=== PATIENT | female | born 1960 | race Caucasian/White ===

== ENCOUNTER 2018-06-29 00:39 | Outpatient (CLI) | payer BC, SELFPAY ==
--- NOTE | 2018-06-29 08:31 | DI.CT_ITS ---
SYMPTOM/DIAGNOSIS: EPIGASTRIC OR RECTUS HERNIA ABDOMEN CT: Images were performed from the lung bases through the aortic bifurcation after IV and oral contrast. There is no evidence of an abdominal wall hernia. The lung bases are clear. The heart size is normal. There is hardware at the L4-5 level causing artifact. There is a small liver cyst. The spleen, gallbladder, adrenals, pancreas and kidneys are unremarkable. No bowel dilatation or inflammatory changes are seen. IMPRESSION: No evidence of abdominal wall hernia or other acute abnormality.
[2018-06-29] MEDS: Omnipaque 350 MG/ML 50 ML BTL IJ (09:06)
[2018-06-29] MEDS: Breeza Beverage 473 ML BTL PO (09:06)
[2018-06-29 09:09] LABS: CREATININE 0.82 mg/dL (0.55-1.02)
[2018-06-29] MEDS: Omnipaque 350 MG/ML 100 ML BTL IJ (10:38)
== END 2018-06-29 00:59 ==
PROVIDERS: Family Medicine; PCP Emergency Medicine; Visit Provider Emergency Medicine
DX: R10.13 Epigastric pain (principal); K76.89 Other specified diseases of liver; N28.9 Disorder of kidney and ureter, unspecified
CPT/HCPCS: 36415; 74160; 82565; J3490; Q9967

== ENCOUNTER 2018-08-30 15:18 | Outpatient (CLI) | payer BC, SELFPAY ==
--- NOTE | 2018-08-30 15:16 | DI.RAD_ITS ---
SYMPTOM/DIAGNOSIS: B/L KNEE OA LEG LENGTH EXAMINATION: In the right knee there is moderate narrowing of the medial femoral tibial joint space and periarticular spurring seen both medially and laterally. In the left knee there is mild narrowing of the medial joint compartment with periarticular spurring seen both medially and laterally The hips are well maintained as are the ankles. The right lower extremity measures 90.3 cm. The left lower extremity measures 91.2 cm. IMPRESSION: Bilateral osteoarthritis of the knees.
== END 2018-08-30 15:38 ==
PROVIDERS: PCP Emergency Medicine; Visit Provider Physician Assistant
DX: M17.0 Bilateral primary osteoarthritis of knee (principal)
CPT/HCPCS: 77073

== ENCOUNTER 2018-11-10 12:57 | Outpatient (CLI) | payer BC, SELFPAY ==
[2018-11-10 14:12] LABS: HCT 39.8 % (36.0-46.0); HGB 13.6 g/dL (12.0-15.5); Mean Corp. HGB Concentration 34.2 g/dL (32.0-36.0); Mean Corpuscular Hemoglobin 32.3 pg (27.0-33.0); Mean Corpuscular Volume 94.5 fL (80-95); Mean Platelet Volume 9.8 fL (8.0-11.0); Platelet Count 215 x1000/uL (130-400); RBC 4.21 m/cumm (4.00-5.20); RBC Distribution Width 13.6 % (11.7-14.6); White Blood Cell Count 3.91 k/cumm (4.4-10.8)
[2018-11-10 16:07] LABS: Anion Gap 9.8 mmol/L (3-11); BUN 28 mg/dL (7-18); CO2 27.2 mmol/L (21.0-32.0); CREATININE 0.81 mg/dL (0.55-1.02); Calcium 8.7 mg/dL (8.5-10.1); Chloride 105 mmol/L (98-107); Glucose 84 mg/dL (70-100); Potassium 3.6 mmol/L (3.5-5.1); Sodium 142 mmol/L (136-145)
--- NOTE | 2018-11-11 13:28 | W.PREOPHP ---
Date of service: 11/10/18 Assessment and Plan (1) Bilateral primary osteoarthritis of knee: Current visit: No Status: Chronic Right total knee replacement. Details of surgery were discussed with patient as well as risks and pertinent anatomy. All questions were answered. History of Present Illness Chief Complaint: Bilateral knee pain, right worse than left. Narrative: Dorothy a 57-year-old female comes in today for a preop visit for a right total knee replacement. She has been complaining of bilateral knee pain for many years now, but the pain has gotten significantly worse over the last few months. She has been using injections to keep the pain at bay, but this is not appear to be working very well anymore. She is a very active person who enjoys doing many activities, but is unable to do a lot of the because of her knee pain. She is unable to get into a deep squat position, finds it difficult to go up and down stairs, down being more difficult. She is also having difficulty walking up and down hills. X-rays taken of the knee show that she does have significant arthritis of both of her knees, with the right being worse than the left. She has decrease in joint space especially on the medial side, with bone spurs throughout. Since she has failed conservative treatment to this point, she would like to move forward with a right total knee replacement. She is also hoping in the near future to have her left knee replaced as well. Pertinent Surgical Information Patient denies history of hypertension, CVA, WI, angina, asthma, COPD, renal or liver disorders, hepatitis, bleeding disorders, diabetes, immune or thyroid disorders. No complications from anesthesia. Review of Systems Constitutional Denies fever(s) ENT Denies dizziness and Denies sore throat Cardiovascular Denies chest pain, Denies palpitations and Denies dyspnea Respiratory Denies dyspnea Gastrointestinal Denies abdominal pain, Denies melena, Denies hematochezia, Denies diarrhea, Denies nausea and Denies vomiting Genitourinary Denies hematuria and Denies dysuria Neurologic Denies dizziness Endocrine Denies palpitations PFSH Medical History Raynaud's disease (Chronic) Inflammatory bowel disease (Chronic) Anxiety DJD (degenerative joint disease), lumbar Lumbar spinal stenosis Migraine headache Right calf atrophy Sleep disorder Surgical History Achilles tendon tear Colonoscopy - IV Sedation Rotator Cuff Repair Family History Mother No problems noted. Other Alzheimer's dementia Atrial fibrillation COPD (chronic obstructive pulmonary disease) Colon polyps Hypertension Social History Smoking/Tobacco Use Status: Never alcohol intake: current alcohol intake frequency: a few times a week substance use type: does not use Meds Home Medications Medication Instructions Recorded Confirmed Type One Daily Women's [facility] 1 ea PO QAM 07/19/13 11/10/18 History Premarin 0.625 mg PO DAILY tab-cap 07/19/13 11/10/18 History buspirone mg PO DAILY tab-cap 07/19/13 08/30/18 History lmptckpksw-scvpblcanirat-hdam 2 tab-cap PO DAILY PRN tab-cap 07/19/13 11/10/18 History [Fioricet] citalopram 20 mg PO DAILY tab-cap 07/19/13 08/30/18 History omega-3 fatty acids-fish oil [Fish 1 ea PO TID 07/19/13 11/10/18 History Oil] progesterone micronized 200 mg PO DIRECTED 07/19/13 08/30/18 History [Prometrium] topiramate 50 mg PO HS 07/19/13 11/10/18 History zolpidem 10 mg PO HS 07/19/13 11/10/18 History bupropion HCl [Wellbutrin] 100 mg PO DAILY tab-cap 07/20/13 11/10/18 History cholestyramine (with sugar) 4 g PO BID packet 03/26/18 08/30/18 History Catalyst 3 ea PO DAILY 04/22/18 11/10/18 History Cbd 45 mg PO DAILY 04/22/18 11/10/18 History L.acidoph, paracasei,B. lactis 2 ea PO DAILY 04/22/18 11/10/18 History Osteo Bi-Flex Triple Strength 1 ea PO DAILY 04/22/18 11/10/18 History losartan 25 mg PO DAILY 04/22/18 11/10/[address] - ER 3 mg 9 mg PO DAILY cap 06/22/18 08/30/18 History capsule,delayed,extended release omeprazole 20 mg capsule,delayed 20 mg PO DAILY 07/13/18 11/10/18 History release celecoxib 200 mg PO DAILY 11/10/18 11/10/18 History Allergies Allergy/AdvReac Type Severity Reaction Status Date / Time fluconazole [From Diflucan] AdvReac Intermediate Upper body Verified 11/10/18 14:04 rash/itch Exam [facility] Head: normocephalic and atraumatic General nose exam: no nasal discharge Throat: uvula midline and no uvular edema Other: soft palate rises symmetrically, no erythema Eyes Conjunctivae: conjunctivae normal Sclera: sclerae normal Pupils: PERRL Resp Effort & Inspection: normal respiratory effort Auscultation: clear to auscultation bilaterally and no wheezes Cardio Rate: regular rate Rhythm: regular rhythm Heart Sounds: S1 normal, S2 normal and no murmurs Results Labs : 11/10/18 13:50 11/10/18 13:50 Laboratory Results - last 24 hr 11/10/18 11/10/18 13:50 13:50 WBC 3.91 L RBC 4.21 Hgb 13.6 Hct 39.8 MCV 94.5 MCH 32.3 MCHC 34.2 RDW 13.6 Plt Count 215 MPV 9.8 Sodium 142 Potassium 3.6 Chloride 105 Carbon Dioxide 27.2 Anion Gap 9.8 BUN 28 H Creatinine 0.81 Estimated GFR/1.73 m2 >= 60.00 Glucose 84 Calcium 8.7
== END 2018-11-10 13:17 ==
PROVIDERS: PCP Emergency Medicine; Visit Provider Student in an Organized Health Care Education/Training Program
DX: M25.561 Pain in right knee (principal); M17.11 Unilateral primary osteoarthritis, right knee; Z01.818 Encounter for other preprocedural examination
CPT/HCPCS: 36415; 80048; 85027; NC

== ENCOUNTER 2018-11-16 06:01 | Observation (INO) | payer BC, SELFPAY ==
[2018-11-16] VITALS (12 sets, daily range): BP systolic 97–121; BP diastolic 61–82; PULSE 53–70; RESP 11–25; TEMP 36.5–37.3; O2SAT 96–99
[2018-11-16] MEDS: Lactated Ringers 1,000 ML 80 ML IV ×3 (06:35→14:31)
[2018-11-16] MEDS: Gabapentin 300 MG CAP PO (06:39)
[2018-11-16] MEDS: Acetaminophen 500 MG TAB 1000 MG PO ×2 (06:39→14:30)
[2018-11-16] MEDS: Celecoxib 200 MG CAP 400 MG PO (06:39)
[2018-11-16] MEDS: oxyCODONE-CR 10 MG TABCR PO (06:40)
[2018-11-16] MEDS: Bupivacaine LIPOSOME/PF 133 MG/10 ML VIAL IJ ×2 (07:10→08:46)
[2018-11-16] MEDS: Bupivacaine 0.5% Pres-Free 30 ML VIAL (07:10)
[2018-11-16] MEDS: Normal Saline 50 ML (08:46)
[2018-11-16] MEDS: Ketorolac 30 MG/ML VIAL (08:46)
[2018-11-16] MEDS: Bupivacaine 0.25% Pres-Free 30 ML VIAL (08:46)
--- NOTE | 2018-11-16 15:10 | PT.INIE ---
Date of service: 11/16/18 Time of Service: 14:30 PT Notes Inpatient Physical Therapy Evaluation Date: 11/16/17 Referring Doctor: Dr. Haji PT Orders: PT CONSULT: Status post right TKA Precautions: Fall, standard Patient Profile/Admitting Diagnosis: Patient admitted status post right TKA, performed this morning. PMHX: Bilateral knee OA, status post multiple injections. Raynaud's disease; IBS; anxiety; spinal stenosis; migraines Social History/Home Situation: Patient lives independently, with normally active lifestyle. No assistive device or equipment needs. She has 2 steps to enter the home, no rails. Her boyfriend will be present to assist with her care upon return home. Equipment Owned/DME: none Subjective: Dorothy states that she is feeling really good, and is excited to get up and try walking. Objective: General Observation: Resting in bed with Hoang wrap to right knee, IV in LUE, and Naranjo catheter. Mental Status: A and O x3 Pain: 0/10 ROM: Right Upper Extremity: WFL Left Upper Extremity: WFL Right Lower Extremity: Right knee extension allows -5 degrees. She is able to actively flex to a proximally 100 degrees. Left Lower Extremity: WFL Strength: Right Upper Extremity: Grossly 5/5 Left Upper Extremity: Grossly 5/5 Right Lower Extremity: Functionally patient is able to perform active SLR without extension lag. She performs full L AQ without difficulty, although no resistance is applied due to postoperative status. Hamstring strength is at least 3/5. Left Lower Extremity: Grossly WFL Sensation: Intact distally. Patient subjectively reports numbness through the right buttock. Bed Mobility/Transfers: Supine to sit: Supervision Sit to supine: Supervision Sit to stand: Supervision Stand to sit: Supervision Bed to chair: Supervision, no assistive device, assistance for management of Naranjo catheter and IV pole only Gait: Patient ambulates 100 feet x2 with FW W and CG?S. Stairs: She is able to manage therapeutic stairs (4 inches x3) with bilateral upper extremity support to rails, verbal cues, and supervision. Balance: Static Sitting: Normal Dynamic Sitting: Normal Static Standing: Good Dynamic Standing: Good Special Tests: Mobility Limitations Standardized Measure [facility] AM-PAC 6 clicks Basic Mobility Inpatient Short Form: Raw Score: 24 standardized Score: 61.14 CMS Score: 0% CMS Modifier: CH Informed Consent/Education: Patient instructed in purpose of PT consult and plan of care. Patient was oriented to postoperative packet, and instructed in a home exercise program consisting of the following activities, all of which were marked in her home packet: 1. Quad sets 10 reps, 3x/day 2. Ankle pumps 10 reps, 3x/day 3. LAQ 10 reps, 3x/day 4. SLR 10 reps, 3x/day 5. Heel slides 10 reps, 3x/day 6. Passive knee extension, 3-5 minutes, 3X/day Assessment: Patient is a 57 year old female referred to physical therapy services with the diagnosis of knee OA, status post right TKA. Patient presents with clinical signs and symptoms consistent with postoperative status, as demonstrated by the following impairment level findings: 1. Decreased right knee ROM 2. Decreased right knee strength 3. Gait impairments 4. Decreased balance Impairments are contributing to the following functional limitations: 1. Decreased balance and functional quad strength, requiring use of FW W for community distance ambulation AMPAC score 0% deficit. Patient is assessed as a Low 69463 complexity based on the following: History: Healthy 57-year-old female admitted for right knee OA, status post right TKA performed earlier today. Examination: Functional limitations as noted above Presentation: Stable Decision Making: Low complexity Goals: Goals X1 week 1. Supine-Sit : Independent 2. Sit-Supine : Independent 3. Sit-Stand : Independent 4. Stand-Sit : Independent 5. Bed-Chair : Independent with FWW 6. Chair-Bed : Independent with FWW 7. Gait: supervision with FWW x 150' 8. Stairs : supervision, ascending and descending 6steps x 2 9. Independent with home exercise program Plan of Care/Treatment Plan: Will see patient for one additional visit tomorrow prior to anticipated discharge. Treatment will consist of instruction in a therapeutic exercise program with both open and closed chain strengthening, as well as continued gait training and stair training. DISCHARGE RECOMMENDATIONS: home with FWW TREATMENT CODE/TIME: 30 minutes (62050)
--- NOTE | 2018-11-16 16:21 | NUR.NOTE ---
11/16/18 1350: Pt admitted to medical surgical room [address]. pt able to ambulate from strecher to bed with gait steady, no pain. Sensation in bilat feet to mid leonardo. Positive cmt bilat feet. Positive pp. Dressing in place leg. Naranjo draining clear yellow urine. Hr regular, lscta, positive bs. dressin cdi, cryp ciff in place while pt on stretcher.
--- NOTE | 2018-11-16 16:23 | W.PM.DS.N ---
Date of service: 11/16/18 Time of Service: 16:23 DS: Diagnosis Discharge Diagnosis (1) Localized osteoarthritis of right knee: Status: Acute Discharge Plan Disposition Patient Disposition: HOME Condition: Good Discharge Details Reason For Visit: (R) KNEE DJD Admit Date/Time: 11/16/18 06:01 Admit Provider: Dru Haji Attending Provider: Dru Haji Primary Care Provider: Lucius Garzon Hospital Course Hospital Course: Patient was admitted to the medical/surgical floor following the procedure. It was tolerated well without any notable medical, surgical, or anesthetic complications. Mobilization began postoperatively. The aleman catheter was removed and voiding spontaneously. Vitals were stable. Physical therapy worked with the patient and was cleared for discharge home. No acute medical issues. Home Meds and New Rx's Prescriptions: New celecoxib 200 mg capsule 200 mg PO BID PRN (Reason: pain) Qty: 60 RF: 1 acetaminophen 500 mg capsule 1,000 mg PO Q8H PRN (Reason: pain) Qty: 90 RF: 0 oxycodone 5 mg tablet 5 mg PO Q4H Qty: 15 RF: 0 aspirin 81 mg tablet,delayed release (DR/EC) 81 mg PO DAILY Qty: 60 RF: 0 Continued budesonide [Entocort EC] 3 mg capsule,delayed,extend.release 9 mg PO DAILY RF: 0 omeprazole 20 mg capsule,delayed release(DR/EC) 20 mg PO DAILY RF: 0 [id number]-ioutleqpeemat-lsba [Fioricet] 1 EACH tablet 2 tab-cap PO DAILY PRNRF: 0 buspirone 30 MG tablet 20 mg PO DAILY RF: 0 zolpidem 10 MG tablet 10 mg PO HS RF: 0 Premarin 0.625 MG tablet 0.625 mg PO HS RF: 0 progesterone micronized [Prometrium] 200 MG capsule 200 mg PO DIRECTED RF: 0 topiramate 50 MG tablet 50 mg PO DAILY RF: 0 omega-3 fatty acids-fish oil [Fish Oil] 1 EACH capsule 1 ea PO TID RF: 0 One Daily Women's Health 1 EACH tablet 1 ea PO QAM RF: 0 bupropion HCl [Wellbutrin] 100 MG tablet 100 mg PO DAILY RF: 0 cholestyramine (with sugar) 4 GM packet 4 g PO BID RF: 0 zolpidem [Ambien] 10 mg Tablet 10 mg PO HS RF: 0 losartan 25 MG tablet 25 mg PO HS RF: 0 L.acidoph, paracasei,B. lactis 1 EACH capsule 2 ea PO DAILY RF: 0 Catalyst 3 ea PO DAILY RF: 0 Cbd 45 mg PO DAILY RF: 0 Osteo Bi-Flex Triple Strength 1 EACH tablet 1 ea PO DAILY RF: 0 Discontinued celecoxib 200 mg capsule 200 mg PO DAILY RF: 0 Discharge Instructions Additional Instructions: Dr. Haji?s Total Knee Discharge Instructions Activity: The most important activity is to walk. You should try to take short walks a few times a day. It is important that when resting you work on keeping the knee straight. Avoid putting a pillow behind the knee as this will encourage flexion. Work on range of motion exercises as provided by Physical Therapy. - Start outpatient physical therapy within 2 weeks. - You should wear the AVANI hose on both legs for 4 weeks. Dressing: Keep the surgical dressing in place for at least one week. After the first week it may be removed and replace with light gauze and tape or nothing. It may get wet after 3 days but avoid soaking the dressing. If it gets wet, just lightly pat dry. Medications: - You should take Tylenol and anti-inflammatory (Celebrex or Meloxicam) as your primary pain control medications - You have been prescribed a stronger pain medication (Oxycodone or Dilaudid) for breakthrough pain, take as needed as prescribed. - You will be taking Aspirin 81mg twice a day for DVT prevention unless instructed otherwise. - If you have constipation you should take Colace or Miralax (both [id number]). It takes most people 3-4 days to have a bowel movement. Follow-up: 2 weeks Referrals: Dru Haji MD [ [facility] STAFF PHYSICIAN] - Activity:: Activity as Tolerated Equipment/Supplies:: Walker Diet:: As Tolerated Discharge Orders Discharge Orders: Discharge Order (Routine); Ordered 11/16/18 Ordered By: Dru Haji DS: Data Vitals/I&O Vitals and I&O: Vital Signs Temperature 37.3 C 11/16/18 15:56 Temperature Source Tympanic 11/16/18 15:56 Pulse 53 L 11/16/18 15:56 Respiratory Rate 18 11/16/18 15:56 Respiratory Effort 11/16/18 06:25 Respiratory Depth Normal 11/16/18 06:25 Respiratory Pattern Normal 11/16/18 06:25 Blood Pressure 110/70 11/16/18 15:56 Pulse Oximetry 99 11/16/18 15:56 Respiratory End-tidal CO2 31 11/16/18 09:44 Oxygen Delivery Method Room Air 11/16/18 15:56 Oxygen Flow Rate 0 11/16/18 15:56 Pain Level 0 11/16/18 14:30 Intake & Output 11/15/18 11/16/18 11/16/18 23:59 11:59 23:59 Intake Total 1670 / 2234 564 / 2234 Output Total 925 / 2625 1700 / 2625 Balance 745 / -391 -1136 / -391 Weight 58.4 kg Intake: IV 1170 / 1734 564 / 1734 Oral 500 / 500 Output: Urine 775 / 2475 1700 / 2475 Estimated Blood Loss 150 / 150 Other: Urine Color Pale Pale Urine Appearance Clear Clear Emesis Description None None PFSH Medical History Inflammatory bowel disease (Chronic) Raynaud's disease (Chronic) Anxiety DJD (degenerative joint disease), lumbar Lumbar spinal stenosis Migraine headache Right calf atrophy Sleep disorder Surgical History Achilles tendon tear Colonoscopy - IV Sedation Rotator Cuff Repair Family History Mother No problems noted. Other Alzheimer's dementia Atrial fibrillation COPD (chronic obstructive pulmonary disease) Colon polyps Hypertension Social History Smoking/Tobacco Use Status: Never alcohol intake: current alcohol intake frequency: a few times a week substance use type: does not use
--- NOTE | 2018-11-17 07:40 | W.PM.OP ---
Date of service: 11/16/18 Time of Service: 09:40 Operative Note DATE OF PROCEDURE: 11/16/18 PRE-OP DIAGNOSIS: Right Knee Arthritis POST-OP DIAGNOSIS: same PROCEDURE: Right Total Knee Arthroplasty with Intraoperative Navigation SURGEON: Dru Haji TRAINING AND DEVELOPMENT DIRECTOR: Pratima Harvey ANESTHESIA: regional and spinal ESTIMATED BLOOD LOSS: 150 PATHOLOGY: none sent TOURNIQUET TIME: 30 COMPLICATIONS: None Patient was transported to: PACU Patient's condition: stable Implants: 1. Depuy Attune Posterior Stabilized Femoral Component, Size 6 2. Depuy Attune Fixed Platform Tibial Component, Size 4 3. Depuy Attune 6x6 fixed, Stabilized Poly 4. Depuy Attune Patellar Component, Size 35 mm Indications: I have seen Dorothy in clinic for symptoms of knee arthritis, confirmed with radiographic findings. Dorothy has exhausted nonoperative methods and was having significant limitations in daily function and desired better function and less pain. I discussed the technical details of a knee replacement. I explained the risks of the procedure to include, but not limited to, bleeding, infection, pain, stiffness, fracture, damage to nerves and vessels, damage to muscles and tendons, loosening, need for repeat procedure, blood clot and cardiopulmonary demise. Despite these risks, Dorothy elected to proceed. Findings: There was significant signs of arthritis throughout the knee. The medial femur had eburnated bone with large osteophytes and there was a stellate loss of complete cartilage over the distal end of the lateral femur Procedure Description: Dorothy was greeted in the preoperative holding area where the correct side was identified and marked. The consent was reviewed with the patient and signed. The history and physical was updated. All questions were answered. Preoperative mediacations were administered: Acetaminophen 1000mg, Celebrex 400mg, Gabapentin 300mg, and Oxycontin 10mg. An adductor canal block was then administered by the anesthesia team in the PACU. Dorothy was taken back to the operating room. A spinal anesthestic was then administered. The patient was placed into the supine position on the operating room table. A nonsterile tourniquet was placed high onto the leg but only used for cementing. Posts were placed for positioning during the procedure. All bony prominences were well padded. Prophylactic antibiotics in the form of cefazolin were administered. 1g of Tranxemic Acid was given intravenously within 30 minutes of incision. The right leg was then prepped with Chloraprep and draped in a standard fashion with impervious stockinette and extremity drape with Iodine impregnated skin protection. A timeout to confirm correct identity, side and site, procedure, allergies, anesthesia, and medical concerns was performed. With the knee in some flexion, a midline incision was made overlying the knee. Full thickness skin flaps were raised once the extensor mechanism was encountered. These were raised medially and laterally. Any bleeding was controlled with electrocautery. Once the extensor mechanism was fully exposed, a medial parapatellar arthrotomy was performed in a flexed position. All bleeding from the arthrotomy and the geniculate arteries was coagulated. A medial subperiosteal peel was performed with electrocautery to the midcoronal plane. The fat pad was removed while keeping the patellar tendon protected. The anterior distal femur synovium was removed for later visualization. The ACL and PCL were resected and the anterior horn of the lateral meniscus was transected. The knee was then flexed with the patella everted. Large osteophytes from the tibia were removed. Large osteophytes from the femur were removed. A single starting pin was then placed 1cm anterior to the PCL insertion and the notch in the direction of the femoral head. The OrthoAlign device was applied over the pin. It was oriented to be in line with the epicondylar axis and the trochlear groove. It was then pinned into place. The navigation computer was then turned on and calibrated. The distal femur cut was set at 0 degrees varus/valgus and 2.5 degrees flexion. The distal femur cutting guide then was positioned for a 9mm cut. The distal femur was cut with an oscillating saw while protecting the soft tissues. The tibia was then addressed. The OrthoAlign device was placed over the tibial tubercle and medial tibia and secured into position. Once again, OrthoAlign was calibrated and then set for a 0 degree varus/valgus cut and 3 degrees of posterior slope. With this locked into position, the cut thickness stylus was used to assess cut thickness. The medial side, most involved side, was set for a 4mm cut. This was then held in position and pinned into place with 2 additional pins and a cross pin for stability. The medial and lateral collateral ligaments were protected and the cut was performed. With this completed, it was assessed and noted to be of appropriate dimensions. The guide and OrthoAlign was removed. A spacer block was inserted and the knee was brought into extension. The 6mm spacer block provided full extension, without hyperextension and with stability of both the medial and lateral collateral ligaments was assessed. The pins from the femur and the tibia were then removed. The distal femur was then sized. The anterior stylus was placed onto the lateral ridge of the anterior femur. This indicated a size 6 femur. The external rotation of the guide was adjusted to 5 degree to match the epicondylar axis, perpendicular to [place]?s line. The 4-in-1 cutting guide was the placed. The posterior medial femur cut was evaluated and appeared of good thickness. The spacer block was inserted underneath the cutting guide and stability was confirmed in 90 degrees of flexion. An phil wing was used to confirm appropriate position of the anterior cut to avoid notching. This cutting guide was ensured to be flush on the cut surface and then pinned into place with headed pins. While protecting the soft tissues, quad tendon, and collateral ligaments, the anterior and posterior cuts were performed with a saw. The central two pins were removed and the posterior and anterior chamfers were cut next. The notch-cutting guide was placed. This was pinned to lateralize the femoral component as much as possible while keeping it flush on the cut surface. This was then pinned into position. A reciprocating saw was used to make the notch cut. A rasp smoothed the cut surfaces. A trial posterior stabilized femoral component was then inserted, impacted down to the cut surfaces, and the lug holes were drilled. A provisional trial tibial component was placed and the knee was brought through range of motion. There was noted to be excellent extension and flexion. There was no significant instability. The patella was tracking without thumbs. The tibial cut surface was fully exposed. The medial and lateral menisci were removed. The tibia was then sized as a 4. The tibia had been previously marked during trialing to correspond to the center of the tibial component to help with rotation. The trial was aligned to this shira, approximately rotated to the medial 1/3rd of the tibial tubercle. The trial was pinned into place. The tibia was prepared with a reamer and a keel punch. The knee was then brought into extension and the patella was measured as 24 mm. Using the patellar clamp and cut guide, this was resected to a flat surface with at least 13mm of thickness remaining. The size 35 mm patella fit the best. This was oriented and then clamped into position. The lugs were drilled. The trial components were removed. The final components, except for the polyethylene were opened on the back table. The periosteal and capsular tissues, especially posteriorly, around the knee were then systematically injected with a periarticular cocktail consisting of 50cc 0.25% Marcaine, 30mg Ketorolac, 20cc of Exparal and 50cc of injectable saline. The tourniquet was then inflated to 275mmHg. The knee was thoroughly irrigated with a pulse lavage and dried. On the back table, with the implants opened, the cement was mixed. 2 batches of antibiotic laden cement were prepared with vacuum assistance. After the cement was ready a small amount was placed on to the back side of the tibial component at the keel. A small amount was placed onto the posterior flange of the femur. Cement was manual pressurized and impregnated into the cut surface of the tibia. The tibial component was then inserted into the cut surface and impacted into position. Excess cement was removed and the component was reimpacted. Again, excess cement was removed and our attention was then turned to the femur. The femoral cut surface was once again dried and cement was manually impacted into the cut surface. The femoral component was lined with the lug holes and impacted. Excess cement was removed. It was ensured to be down against the cut surface. The trial polyethylene was then inserted and the leg was brought out into full extension for the duration of the cement curing process, approximately 15min. Cement was lastly manually impacted into the cut surface of the patella and the patellar button was clamped into position and held. During this process attention was turned to the gutters of the knee and for all interfaces for any excess cement. After the cement had finally cured, approximately 15min, the clamp was removed from the patella and the knee was taken through range of motion. A size 6mm polyethylene component provided the best range of motion and stability with less than 2mm gapping with medial and lateral stress and full extension without significant hyperextension. The patella was tracking with a no-thumbs technique. The trial poly was removed and once again the knee was checked for any loose, excess, or errant cement. The poly component was then inserted and impacted into position after cleaning and drying the tibial tray. The capsule was then reapproximated with a No. 1 Vicryl at multiple locations. The capsule was finally closed with a No. 2 Stratafix, barbed suture. The tourniquet was then released and the arthrotomy appeared watertight without significant bleeding. The second dosing of 1g TXA was started. Deep tissues were then reapproximated with 0 Vicryl and 2-0 Vicryl. The skin was closed with a running 3-0 Monocryl in a subcuticular fashion. This was reinforced with skin glue. A Mepilex silver dressing was applied along with a [id number] JULIANO wrap. A CryoCuff was applied. Dorothy was transferred to the hospital bed without difficulty an suffering no apparent complication. Dorothy has a good prognosis. Physical therapy will start today and without restrictions, weight-bearing as tolerated. Aspirin 81mg BID will be used for DVT prophylaxis.
--- NOTE | 2018-11-17 08:25 | PT.INDS ---
Date of service: 11/17/18 Time of Service: 08:25 PT Notes 11/17/18 Patient admitted 11/16/18 s/p right TKA. She was seen for a single session of PT intervention, during which time she was able to ambulate 100'x2 with WW and supervision only, as well as manage stairs with bilat rails and supervision only. She was independent with bed mobility and transfers, and was instructed in an HEP for completion over the next two weeks. She was able to discharge home last night, and will now be formally discharged from PT services in acute care setting. Please see initial evaluation from 11/16/18 for full report on mobility. Pearl Altman, PT, DPT
== END 2018-11-16 18:15 | disposition home or self-care (01) ==
LOC: MS 14:55 → PDS 14:55
PROVIDERS: Admitting Provider Student in an Organized Health Care Education/Training Program; PCP Emergency Medicine; Visit Provider Student in an Organized Health Care Education/Training Program
PROC: 0SRC0J9 Replacement of Right Knee Joint with Synthetic Substitute, Cemented, Open Approach (ICD-10-PCS; CPT 27447; principal; 2018-11-16 07:30)
DX: M17.11 Unilateral primary osteoarthritis, right knee (principal); Z96.651 Presence of right artificial knee joint; F41.9 Anxiety disorder, unspecified
CPT/HCPCS: 27447; 20985; 76942; 97161; NC; J0690; J1100; J1885; J2250; J2405

== ENCOUNTER 2018-12-10 01:05 | Outpatient (CLI) | payer BC, SELFPAY ==
[2018-12-10 09:34] LABS: HCT 39.5 % (36.0-46.0); HGB 13.2 g/dL (12.0-15.5); Mean Corp. HGB Concentration 33.4 g/dL (32.0-36.0); Mean Corpuscular Hemoglobin 31.9 pg (27.0-33.0); Mean Corpuscular Volume 95.4 fL (80-95); Mean Platelet Volume 9.6 fL (8.0-11.0); Platelet Count 292 x1000/uL (130-400); RBC 4.14 m/cumm (4.00-5.20); RBC Distribution Width 14.3 % (11.7-14.6); White Blood Cell Count 5.16 k/cumm (4.4-10.8)
[2018-12-10 10:29] LABS: ALT 34 U/L (12-78); AST 20 U/L (15-37); Albumin 3.7 g/dL (3.4-5.0); Alkaline Phosphatase 86 U/L (46-116); Anion Gap 7.3 mmol/L (3-11); BUN 31 mg/dL (7-18); Bilirubin, Total 0.4 mg/dL (0.2-1.0); CO2 28.7 mmol/L (21.0-32.0); CREATININE 0.78 mg/dL (0.55-1.02); Calcium 8.6 mg/dL (8.5-10.1); Chloride 102 mmol/L (98-107); Glucose 89 mg/dL (70-100); Potassium 4.1 mmol/L (3.5-5.1); Sodium 138 mmol/L (136-145); Total Protein 7.3 g/dL (6.4-8.2)
[2018-12-10 10:37] LABS: C-Reactive Protein < 0.05 mg/dL (0.0-0.3)
[2018-12-10 11:05] LABS: ESR 11 MM/HR (0-30)
[2018-12-13 13:32] LABS: Albumin 59.9 % (55.8-66.1); Total Protein 6.8 g/dl (6.3-8.2)
[2018-12-13 13:52] LABS: ANA Interpretation Positive (NEGAT); ANA Titer Pattern SEE COMMENTS
== END 2018-12-10 01:25 ==
PROVIDERS: PCP Emergency Medicine; Visit Provider Emergency Medicine
DX: I73.01 Raynaud's syndrome with gangrene (principal); M25.50 Pain in unspecified joint; R07.1 Chest pain on breathing
CPT/HCPCS: 36415; 80053; 85027; 85652; 84165; 86038; 86140

== ENCOUNTER 2018-12-29 08:30 | Outpatient (CLI) | payer BC, SELFPAY ==
--- NOTE | 2018-12-29 08:28 | DI.RAD_ITS ---
SYMPTOM/DIAGNOSIS: F/U RT TKA RIGHT KNEE: AP and lateral projections are provided. The patient is status post TKA. The prosthesis in good position. Surrounding bone intact. STANDING LEG LENGTH: The left leg measures 89.9 cm. The right leg measures 89.4 cm. Patient is status post right TKA. The prosthesis appears to be in good position. Surrounding bone intact.
== END 2018-12-29 08:50 ==
PROVIDERS: PCP Emergency Medicine; Visit Provider Physician Assistant
DX: Z96.651 Presence of right artificial knee joint (principal); Z47.1 Aftercare following joint replacement surgery
CPT/HCPCS: 73560; 77073

== ENCOUNTER 2019-01-18 01:26 | Outpatient (CLI) | payer BC, SELFPAY ==
--- NOTE | 2019-01-18 13:56 | DI.RAD_ITS ---
SYMPTOMS/DIAGNOSIS: CHRONIC AND CURRENT LONG-TERM STEROID USE, Z79.52 DEXA SCAN: The dorsolumbar spine appears unremarkable. Note is made of postsurgical changes in the lower lumbar region. For the left forearm, a T score of 0.7 and a Z score of 2.0 are within the normal range. For the left hip, a T score of -0.3 and a Z score of 0.7 are within the normal range. For the lumbar spine, a T score of 1.1 and a Z score of 2.4 are also within the normal range.
== END 2019-01-18 01:46 ==
PROVIDERS: PCP Emergency Medicine; Visit Provider Emergency Medicine
DX: Z13.820 Encounter for screening for osteoporosis (principal); Z79.52 Long term (current) use of systemic steroids
CPT/HCPCS: 77080

== ENCOUNTER 2019-02-24 13:56 | Outpatient (CLI) | payer BC, SELFPAY ==
[2019-02-24 15:15] LABS: Absolute Basophil Count 0.04 k/cumm (0.0-0.2); Absolute Eosinophil Count 0.16 k/cumm (0.0-0.7); Absolute Monocyte Count 0.49 k/cumm (0.11-0.7); Absolute Neutrophil Count 2.46 k/cumm (1.2-6.7); Basophils % 0.9; Eosinophils % 3.4; HCT 41.1 % (36.0-46.0); Lymphocytes % 32.3; Mean Corp. HGB Concentration 34.1 g/dL (32.0-36.0); Mean Corpuscular Hemoglobin 31.7 pg (27.0-33.0); Mean Platelet Volume 9.9 fL (8.0-11.0); Monocytes % 10.5; Neutrophils % 52.9; Platelet Count 233 x1000/uL (130-400); RBC 4.42 m/cumm (4.00-5.20); White Blood Cell Count 4.65 k/cumm (4.4-10.8)
[2019-02-24 16:21] LABS: Anion Gap 8.7 mmol/L (3-11); BUN 22 mg/dL (7-18); CO2 27.3 mmol/L (21.0-32.0); CREATININE 0.82 mg/dL (0.55-1.02); Calcium 9.1 mg/dL (8.5-10.1); Chloride 103 mmol/L (98-107); Glucose 77 mg/dL (70-100); Potassium 4.1 mmol/L (3.5-5.1); Sodium 139 mmol/L (136-145)
--- NOTE | 2019-02-27 15:02 | W.PREOPHP ---
Date of service: 02/24/19 Assessment and Plan (1) Primary osteoarthritis of left knee: Current visit: No Status: Chronic Left total knee replacement. Details of surgery were discussed with patient as well as risks and pertinent anatomy. All questions were answered. History of Present Illness Chief Complaint: LEFT knee pain Narrative: Dorothy is a 58-year-old female who is here for a preop visit of a left total knee replacement. She had a right total knee replacement done about 3 months ago, and was planning to continue with a left total knee replacement next week. She continues to have pain in her left knee, and states that her right knee is much better than it was prior to surgery. Her left knee is more limiting to her than her right knee at this point, so she would like to move forward with the aforementioned left total knee replacement. This was discussed at previous visits, and she would like to move forward with that at this time. Pertinent Surgical Information Dorothy work-up for antiphospholipid syndrome, as a few tests from rheumatology came back suggestive of this diagnosis. If she does not fact have this confirms a diagnosis, she may need to be placed on a stronger anticoagulation therapy after surgery rather than just the aspirin. As of note, she did do fine on aspirin last knee replacement surgery 3 months ago. Patient denies history of hypertension, CVA, [place], angina, asthma, COPD, renal or liver disorders, hepatitis, bleeding disorders, diabetes, immune or thyroid disorders. No complications from anesthesia. Review of Systems Constitutional Denies fever(s) ENT Denies dizziness and Denies sore throat Cardiovascular Denies chest pain, Denies palpitations and Denies dyspnea Respiratory Denies cough and Denies dyspnea Gastrointestinal Denies abdominal pain, Denies melena, Denies hematochezia, Denies diarrhea, Denies nausea and Denies vomiting Genitourinary Denies hematuria and Denies dysuria Neurologic Denies dizziness Endocrine Denies palpitations PFSH Social History Smoking/Tobacco Use Status: Never Alcohol Intake: current Alcohol Intake frequency: a few times a week Drug use: Never Substance use type: does not use Meds Home Medications Medication Instructions Recorded Confirmed Type One Daily Women[facility] 1 ea PO QAM 07/19/13 02/24/19 History Premarin 0.625 mg PO HS tab-cap 07/19/13 02/24/19 History buspirone 20 mg PO DAILY tab-cap 07/19/13 02/24/19 History [id number] 2 tab-cap PO DAILY PRN tab-cap 07/19/13 02/24/19 History [Fioricet] omega-3 fatty acids-fish oil [Fish 1 ea PO TID 07/19/13 02/24/19 History Oil] progesterone micronized 200 mg PO DIRECTED 07/19/13 02/24/19 History [Prometrium] topiramate 50 mg PO DAILY 07/19/13 02/24/19 History bupropion HCl [Wellbutrin] 100 mg PO DAILY tab-cap 07/20/13 02/24/19 History Catalyst 3 ea PO DAILY 04/22/18 02/24/19 History Cbd 45 mg PO DAILY 04/22/18 02/24/19 History L.acidoph, paracasei,B. lactis 2 ea PO DAILY 04/22/18 02/24/19 History Osteo Bi-Flex Triple Strength 1 ea PO DAILY 04/22/18 02/24/19 History losartan 25 mg PO HS 04/22/18 02/24/19 History omeprazole 20 mg capsule,delayed 20 mg PO DAILY 07/13/18 02/24/19 History release aspirin 81 mg PO DAILY #60 tab 11/16/18 02/24/19 Rx zolpidem [Ambien] 10 mg PO HS 11/16/18 02/24/19 History adjuvant AS01B (PF), component 0.5 ml IM .COMPLEX #0.5 ml 02/08/19 02/24/19 Rx vial 1 of 2 intramuscular suspension Calm 1 tsp PO DAILY 02/24/19 History Allergies Allergy/AdvReac Type Severity Reaction Status Date / Time fluconazole [From Diflucan] AdvReac Intermediate Upper body Verified 02/24/19 13:02 rash/itch Exam [facility] Head: normocephalic and atraumatic General nose exam: no nasal discharge Throat: uvula midline and no uvular edema Other: soft palate rises symmetrically, no erythema Eyes Conjunctivae: conjunctivae normal Sclera: sclerae normal Pupils: PERRL Resp Effort & Inspection: normal respiratory effort Auscultation: clear to auscultation bilaterally and no wheezes Cardio Rate: regular rate Rhythm: regular rhythm Heart Sounds: S1 normal, S2 normal and no murmurs GI Palpation: soft, no hepatosplenomegaly and nontender Auscultation: normal bowel sounds Results Labs : 02/24/19 15:08 02/24/19 15:08
== END 2019-02-24 14:16 ==
PROVIDERS: PCP Emergency Medicine; Visit Provider Student in an Organized Health Care Education/Training Program
DX: M25.562 Pain in left knee (principal); M17.12 Unilateral primary osteoarthritis, left knee; Z01.818 Encounter for other preprocedural examination
CPT/HCPCS: 36415; 80048; NC; 85025

== ENCOUNTER 2019-03-03 07:24 | Inpatient (IN) | payer BC, SELFPAY ==
[2019-02-24 14:29] VITALS: BP 115/75; PULSE 54; RESP 16; TEMP 36.9; O2SAT 100
[2019-02-24 14:31] VITALS: BP 115/75; PULSE 54; RESP 16; TEMP 36.9; O2SAT 100
[2019-03-03] VITALS (13 sets, daily range): BP systolic 85–115; BP diastolic 55–84; PULSE 52–69; RESP 11–22; TEMP 35.6–37; O2SAT 95–100
[2019-03-03] MEDS: Lactated Ringers 1,000 ML 80 ML IV ×4 (08:22→14:15)
[2019-03-03] MEDS: Gabapentin 300 MG CAP PO ×2 (09:04→21:19)
[2019-03-03] MEDS: Celecoxib 200 MG CAP 400 MG PO (09:04)
[2019-03-03] MEDS: Acetaminophen 500 MG TAB 1000 MG PO ×3 (09:04→19:57)
[2019-03-03] MEDS: oxyCODONE-CR 10 MG TABCR PO (09:05)
[2019-03-03] MEDS: ceFAZolin 2 GM/50 ML BAG IVPB (10:45)
[2019-03-03] MEDS: Normal Saline 20 ML VIAL (11:51)
[2019-03-03] MEDS: Bupivacaine LIPOSOME/PF 133 MG/10 ML VIAL IJ (11:51)
[2019-03-03] MEDS: Ketorolac 30 MG/ML VIAL (11:51)
[2019-03-03] MEDS: Bupivacaine 0.25% Pres-Free 30 ML VIAL (11:51)
--- NOTE | 2019-03-03 12:38 | ROE_ITS ---
Date of service: 03/03/19 Time of Service: 12:45 Operative Note DATE OF PROCEDURE: 03/03/19 PRE-OP DIAGNOSIS: Left Knee Arthritis POST-OP DIAGNOSIS: same PROCEDURE: Left Total Knee Arthroplasty with Intraoperative Navigation SURGEON: Dru Haji TRAINING FACILITATOR: Shira Brown ANESTHESIA: regional and spinal ESTIMATED BLOOD LOSS: 150 PATHOLOGY: none sent COMPLICATIONS: None Patient was transported to: PACU Patient's condition: stable Implants: 1. Depuy Attune Posterior Stabilized Femoral Component, Size 6 2. Depuy Attune Fixed Platform Tibial Component, Size 4 3. Depuy Attune 6.5 mm fixed, Stabilized Poly 4. Depuy Attune Patellar Component, Size 35mm Indications: I have seen Dorothy in clinic for symptoms of knee arthritis, confirmed with radiographic findings. Dorothy has exhausted nonoperative methods and was having significant limitations in daily function and desired better function and less pain. She has had a knee replacement on the right side with great success. I discussed the technical details of a knee replacement. I explained the risks of the procedure to include, but not limited to, bleeding, infection, pain, stiffness, fracture, damage to nerves and vessels, damage to muscles and tendons, loosening, need for repeat procedure, blood clot and cardiopulmonary demise. Despite these risks, Dorothy elected to proceed. Findings: There was significant signs of arthritis throughout the knee primarily of the patellofemoral joint and the medial compartment. Procedure Description: Dorothy was greeted in the preoperative holding area where the correct side was identified and marked. The consent was reviewed with the patient and signed. The history and physical was updated. All questions were answered. Preoperative mediacations were administered: Acetaminophen 1000mg, Celebrex 400mg, Gabapentin 300mg, and Oxycontin 10mg. An adductor canal block was then administered by the anesthesia team in the PACU. Dorothy was taken back to the operating room. A spinal anesthestic was then administered. The patient was placed into the supine position on the operating room table. A nonsterile tourniquet was placed high onto the leg but only used for cementing. Posts were placed for positioning during the p rocedure. All bony prominences were well padded. Prophylactic antibiotics in the form of cefazolin were administered. 1g of Tranxemic Acid was given intravenously within 30 minutes of incision. The left leg was then prepped with Chloraprep and draped in a standard fashion with impervious stockinette and extremity drape with Iodine impregnated skin protection. A timeout to confirm correct identity, side and site, procedure, allergies, anesthesia, and medical concerns was performed. With the knee in some flexion, a midline incision was made overlying the knee. Full thickness skin flaps were raised once the extensor mechanism was encountered. These were raised medially and laterally. Any bleeding was controlled with electrocautery. Once the extensor mechanism was fully exposed, a medial parapatellar arthrotomy was performed in a flexed position. All bleeding from the arthrotomy and the geniculate arteries was coagulated. A medial subperiosteal peel was performed with electrocautery to the midcoronal plane. The fat pad was removed while keeping the patellar tendon protected. The anterior distal femur synovium was removed for later visualization. The ACL and PCL were resected and the anterior horn of the lateral meniscus was transected. The knee was then flexed with the patella everted. Large osteophytes from the femur were removed. A single starting pin was then placed 1cm anterior to the PCL insertion and the notch in the direction of the femoral head. The OrthoAlign device was applied over the pin. It was oriented to be in line with the epicondylar axis and the trochlear groove. It was then pinned into place. The navigation computer was then turned on and calibrated. The distal femur cut was set at 0 degrees varus/valgus and 2.5 degrees flexion. The distal femur cutting guide then was positioned for a 9mm cut. The distal femur was cut with an oscillating saw while protecting the soft tissues. The tibia was then addressed. The OrthoAlign device was placed over the tibial tubercle and medial tibia and secured into position. Once again, OrthoAlign was calibrated and then set for a 0 degree varus/valgus cut and 3 degrees of posterior slope. With this locked into position, the cut thickness stylus was used to assess cut thickness. The medial side, most involved side, was set for a 4mm cut. This was then held in position and pinned into place with 2 additional pins and a cross pin for stability. The medial and lateral collateral ligaments were protected and the cut was performed. With this completed, it was assessed and noted to be of appropriate dimensions. The guide and OrthoAlign was removed. A spacer block was inserted and the knee was brought into extension. The 5 mm spacer block provided full extension, without hyperextension and with stability of both the medial and lateral collateral ligaments was assessed. The pins from the femur and the tibia were then removed. The distal femur was then sized. The anterior stylus was placed onto the lateral ridge of the anterior femur. This indicated a size 6 femur. The external rotation of the guide was adjusted to 3 degrees to match the epicondylar axis, perpendicular to Alan?s line. The 4-in-1 cutting guide was the placed. The posterior medial femur cut was evaluated and appeared of good thickness. The spacer block was inserted underneath the cutting guide and stability was confirmed in 90 degrees of flexion. An phil wing was used to confirm appropriate position of the anterior cut to avoid notching. This cutting guide was ensured to be flush on the cut surface and then pinned into place with headed pins. While protecting the soft tissues, quad tendon, and collateral ligaments, the anterior and posterior cuts were performed with a saw. The central two pins were removed and the posterior and anterior chamfers were cut next. The notch-cutting guide was placed. This was pinned to lateralize the femoral component as much as possible while keeping it flush on the cut surface. This was then pinned into position. A reciprocating saw was used to make the notch cut. A rasp smoothed the cut surfaces. A trial posterior stabilized femoral component was then inserted, impacted down to the cut surfaces, and the lug holes were drilled. A provisional trial tibial component was placed and the knee was brought through range of motion. There was noted to be excellent extension and flexion. There was no significant instability. The patella was tracking without thumbs. The tibial cut surface was fully exposed. The medial and lateral menisci were removed. The tibia was then sized as a 4. The tibia had been previously marked during trialing to correspond to the center of the tibial component to help with rotation. The trial was aligned to this shira, approximately rotated to the medial 1/3rd of the tibial tubercle. The trial was pinned into place. The tibia was prepared with a reamer and a keel punch. The knee was then brought into extension and the patella was measured as 22 mm. Using the patellar clamp and cut guide, this was resected to a flat surface with at least 13mm of thickness remaining. The size 35mm patella fit the best. This was oriented and then clamped into position. The lugs were drilled. The trial components were removed. The final components, except for the polyethylene were opened on the back table. The periosteal and capsular tissues, especially posteriorly, around the knee were then systematically injected with a periarticular cocktail consisting of 50cc 0.25% Marcaine, 30mg Ketorolac, 20cc of Exparal and 50cc of injectable saline. The tourniquet was then inflated to 275mmHg. The knee was thoroughly irrigated with a pulse lavage and dried. On the back table, with the implants opened, the cement was mixed. 2 batches of antibiotic laden cement were prepared with vacuum assistance. After the cement was ready a small amount was placed on to the back side of the tibial component at the keel. A small amount was placed onto the posterior flange of the femur. Cement was manual pressurized and impregnated into the cut surface of the tibia. The tibial component was then inserted into the cut surface and impacted into position. Excess cement was removed and the component was reimpacted. Again, excess cement was removed and our attention was then turned to the femur. The femoral cut surface was once again dried and cement was manually impacted into the cut surface. The femoral component was lined with the lug holes and impacted. Excess cement was removed. It was ensured to be down against the cut surface. The trial polyethylene was then inserted and the leg was brought out into full extension for the duration of the cement curing process, approximately 15min. Cement was lastly manually impacted into the cut surface of the patella and the patellar button was clamped into position and held. During this process attention was turned to the gutters of the knee and for all interfaces for any excess cement. After the cement had finally cured, approximately 15min, the clamp was removed from the patella and the knee was taken through range of motion. A size 5 mm polyethylene component provided the best range of motion and stability with less than 2mm gapping with medial and lateral stress and full extension without significant hyperextension. The patella was tracking with a no-thumbs technique. The trial poly was removed and once again the knee was checked for any loose, excess, or errant cement. The poly component was then inserted and impacted into position after cleaning and drying the tibial tray. The capsule was then reapproximated with a No. 1 Vicryl at multiple locations. The capsule was finally closed with a No. 2 Stratafix, barbed suture. The tourniquet was then released and the arthrotomy appeared watertight without significant bleeding. The second dosing of 1g TXA was started. Deep tissues were then reapproximated with 0 Vicryl and 2-0 Vicryl. The skin was closed with a running 3-0 Monocryl in a subcuticular fashion. This was reinforced with skin glue. A Mepilex silver dressing was applied along with a hodc-ms-vlade JULIANO wrap. A CryoCuff was applied. Dorothy was transferred to the hospital bed without difficulty an suffering no apparent complication. Dorothy has a good prognosis. Physical therapy will start today and without restrictions, weight-bearing as tolerated. Rivaroxaban 10 mg daily will be used for DVT prophylaxis.
--- NOTE | 2019-03-03 15:27 | NUR.NOTE ---
Nursing Note: 03/03/19 @ 1330- admited from PACU to room 231 via stretcher. Hover mat used for transfer to bed. Upper bed rails in use. Oriented to room and call reyes system. A&Ox3. Speech clear. Had block & is still numb from waist down. Denies pain. LS clear. Denies cough. Enc to cough & take deep breaths. Sips of clear given. Naranjo to gravity drainage-pale clear urine in bag. Able to turn with assist since had block and is unable to feel or move from the waist down. Unable to wiggle toes yet. PP+ strong equal and feet are warm w good cap refill. pillows used per protocol under LE feet.. LT knee dressing is CDI w betsy wrap from base of toes into thigh. Cryo cuff in use. Teds and SCD's on RLE per protocol. See IV site & VS intervention.
[2019-03-03] MEDS: Celecoxib 100 MG CAP PO (19:57)
--- NOTE | 2019-03-03 20:10 | DSE_ITS ---
Date of service: 03/03/19 Time of Service: 20:09 DS: Diagnosis Discharge Diagnosis (1) Primary osteoarthritis of left knee: Status: Chronic Discharge Plan Disposition Patient Disposition: HOME Condition: Good Discharge Details Reason For Visit: LEFT KNEE DJD Admit Date/Time: 03/03/19 07:24 Admit Provider: Dru Haji Attending Provider: Dru Haji Primary Care Provider: Lucius Garzon Hospital Course Hospital Course: Patient was admitted to the medical/surgical floor following the procedure. It was tolerated well without any notable medical, surgical, or anesthetic complications. Mobilization began postoperatively. The aleman catheter was removed and voiding spontaneously. Vitals were stable. Physical therapy worked with the patient and was cleared for discharge home. No acute medical issues. Home Meds and New Rx's Prescriptions: New acetaminophen 500 mg tablet 1,000 mg PO Q8H PRN (Reason: pain) Qty: 90 RF: 3 oxycodone 5 mg tablet 5 mg PO Q4H Qty: 10 RF: 0 rivaroxaban 10 mg tablet 10 mg PO DAILY Qty: 14 RF: 0 Continued omeprazole 20 mg capsule,delayed release(DR/EC) 20 mg PO DAILY RF: 0 dzviuadfez-msuaynbzjaupc-tzvg [Fioricet] 1 EACH tablet 2 tab-cap PO DAILY PRNRF: 0 buspirone 30 MG tablet 20 mg PO DAILY RF: 0 Premarin 0.625 MG tablet 0.625 mg PO HS RF: 0 progesterone micronized [Prometrium] 200 MG capsule 200 mg PO DIRECTED RF: 0 topiramate 50 MG tablet 50 mg PO DAILY RF: 0 omega-3 fatty acids-fish oil [Fish Oil] 1 EACH capsule 1 ea PO TID RF: 0 One Daily Women's Health 1 EACH tablet 1 ea PO QAM RF: 0 bupropion HCl [Wellbutrin] 100 MG tablet 100 mg PO DAILY RF: 0 Shingrix Adjuvant Component-PF suspension 0.5 ml IM .COMPLEX Qty: 0.5 RF: 1 zolpidem [Ambien] 10 mg Tablet 10 mg PO HS RF: 0 losartan 25 MG tablet 25 mg PO HS RF: 0 L.acidoph, paracasei,B. lactis 1 EACH capsule 2 ea PO DAILY RF: 0 Catalyst 3 ea PO DAILY RF: 0 Cbd 45 mg PO DAILY RF: 0 Osteo Bi-Flex Triple Strength 1 EACH tablet 1 ea PO DAILY RF: 0 Calm 1 tsp PO DAILY RF: 0 Discontinued aspirin 81 mg tablet,delayed release (DR/EC) 81 mg PO DAILY Qty: 60 RF: 0 Discharge Instructions Additional Instructions: Dr. Haji?s Total Knee Discharge Instructions Activity: The most important activity is to walk. You should try to take short walks a few times a day. It is important that when resting you work on keeping the knee straight. Avoid putting a pillow behind the knee as this will encourage flexion. Work on range of motion exercises as provided by Physical Therapy. - Start outpatient physical therapy within 2 weeks. - You should wear the AVANI hose on both legs for 4 weeks. Dressing: Keep the surgical dressing in place for at least one week. After the first week it may be removed and replace with light gauze and tape or nothing. It may get wet after 3 days but avoid soaking the dressing. If it gets wet, just lightly pat dry. Medications: - You should take Tylenol and anti-inflammatory (Celebrex) as your primary pain control medications - You have been prescribed a stronger pain medication (Oxycodone) for breakthrough pain, take as needed as prescribed. - You will be taking Rivaroxaban 10mg once a day for DVT prevention unless instructed otherwise. - If you have constipation you should take Colace or Miralax (both miim-nsu-qjkglbu). It takes most people 3-4 days to have a bowel movement. Follow-up: 2 weeks Referrals: Dru Haji MD [ [facility] STAFF PHYSICIAN] - Activity:: Activity as Tolerated Equipment/Supplies:: No Equipment Needed Diet:: As Tolerated Discharge Orders Discharge Orders: Discharge Order (Routine); Ordered 03/03/19 Ordered By: Dru Haji DS: Data Vitals/I&O Vitals and I&O: Vital Signs Temperature 37.0 C 03/03/19 15:31 Temperature Source Tympanic 03/03/19 15:31 Pulse 54 L 03/03/19 15:31 Pulse Rhythm Regular 03/03/19 16:40 Respiratory Rate 18 03/03/19 15:31 Respiratory Effort Non-Labored 03/03/19 16:40 Respiratory Depth Normal 03/03/19 16:40 Respiratory Pattern Normal 03/03/19 16:40 Blood Pressure 111/75 03/03/19 15:31 Pulse Oximetry 100 03/03/19 15:31 Respiratory End-tidal CO2 34 03/03/19 13:25 Oxygen Delivery Method Room Air 03/03/19 15:31 Oxygen Flow Rate 0 03/03/19 15:31 Pain Level 0 03/03/19 14:20 Comment 03/03/19 13:50 Intake & Output 03/02/19 03/03/19 03/03/19 23:59 11:59 23:59 Intake Total 1110 / 4407.333 3297.333 / 4407.333 Output Total 1250 / 1250 Balance 1110 / 3157.333 2047.333 / 3157.333 Weight 58.3 kg Intake: IV 1110 / 2887.333 1777.333 / 2887.333 Oral 1520 / 1520 Output: Urine 1100 / 1100 Estimated Blood Loss 150 / 150 Other: Urine Color Pale Pale Yellow Yellow Urine Appearance Clear Clear Emesis Description None PFSH Medical History Depression (Chronic) Inflammatory bowel disease (Chronic) Raynaud's disease (Chronic) Anxiety DJD (degenerative joint disease), lumbar Lumbar spinal stenosis Migraine headache Right calf atrophy Sleep disorder Surgical History History of total right knee replacement (TKR) (Chronic) History of bunionectomy of both great toes (Acute) Achilles tendon tear Colonoscopy - IV Sedation Rotator Cuff Repair Family History Mother No problems noted. Other Alzheimer's dementia Atrial fibrillation COPD (chronic obstructive pulmonary disease) Colon polyps Hypertension Social History Smoking/Tobacco Use Status: Never Alcohol Intake: current Alcohol Intake frequency: a few times a week Drug use: Never Substance use type: does not use
[2019-03-03] MEDS: oxyCODONE 5 MG TAB PO (21:37)
--- NOTE | 2019-03-04 08:21 | PT.INNT ---
Date of service: 03/04/19 Time of Service: 13:45 PT Notes Patient seen for evaluation per referral of Dr. Haji but patient declined consult as she stated she could still not feel both her legs being just within an hour of leaving PACU. She still reported same complaint after an hour of another attempt of doing an evaluation. Will attempt an evaluation first thing tomorrow morning to esure patient safety with mobility performance. Thank you for this referral. Jada Olsen, PT, DPT, CLT [facility]
== END 2019-03-03 21:50 | disposition home or self-care (01) | DRG 470 ==
LOC: PDS 12:53 → MS 13:03
PROVIDERS: Admitting Provider Student in an Organized Health Care Education/Training Program; PCP Emergency Medicine; Visit Provider Student in an Organized Health Care Education/Training Program
PROC: 0SRD0J9 Replacement of Left Knee Joint with Synthetic Substitute, Cemented, Open Approach (ICD-10-PCS; CPT 27447; principal; 2019-03-03 10:30)
DX: M17.12 Unilateral primary osteoarthritis, left knee (principal); Z96.652 Presence of left artificial knee joint; Z96.651 Presence of right artificial knee joint
CPT/HCPCS: 27447; 20985; 76942; NC; J0690; J1100; J1885; J2250; J2405

== ENCOUNTER 2019-03-16 13:49 | Outpatient (CLI) | payer BC, SELFPAY ==
--- NOTE | 2019-03-16 13:36 | DI.RAD_ITS ---
SYMPTOMS/DIAGNOSIS: FIRST POSTOP VISIT FOR LEFT TOTAL KNEE ARTHROPLASTY LEG LENGTH STUDY: The left leg measures 89 cm, the right leg 89 cm. The patient is status post bilateral TKA. WEIGHTBEARING LATERAL PROJECTION OF THE LEFT KNEE: The patient is status post TKA. As visualized in the lateral plane, the prosthesis is in good position, surrounding bone intact.
== END 2019-03-16 14:09 ==
PROVIDERS: PCP Emergency Medicine; Visit Provider Physician Assistant
DX: M17.12 Unilateral primary osteoarthritis, left knee (principal); Z96.652 Presence of left artificial knee joint; Z47.1 Aftercare following joint replacement surgery
CPT/HCPCS: 73560; 77073

== ENCOUNTER 2019-05-27 10:29 | Outpatient (CLI) | payer BC, SELFPAY ==
--- NOTE | 2019-05-27 09:37 | DI.RAD_ITS ---
SYMPTOM/DIAGNOSIS: RT PATELLAR DISCOMFORT BILATERAL MERCHANT VIEWS: Bilateral Merchant views were obtained. There are total knee joint replacements in position. There is mild bilateral lateral subluxation of the patellar components, right greater than left. No other abnormality is seen.
== END 2019-05-27 10:49 ==
PROVIDERS: PCP Emergency Medicine; Visit Provider Physician Assistant
DX: M25.561 Pain in right knee (principal); Z96.651 Presence of right artificial knee joint; Z96.652 Presence of left artificial knee joint
CPT/HCPCS: 73565

== ENCOUNTER 2019-07-06 07:18 | Day surgery (SDC) | payer BC, SELFPAY ==
[2019-07-06 07:51] VITALS: BP 93/61; PULSE 60; RESP 16; TEMP 36.3; O2SAT 93
[2019-07-06] MEDS: Lactated Ringers 1,000 ML 80 ML IV ×2 (08:07→11:02)
--- NOTE | 2019-07-06 10:23 | W.PM.DSUDISC ---
Discharge Plan Disposition Patient Disposition: HOME Condition: Good Discharge Details Reason For Visit: (L) KNEE ARTHROFIBROSIS Attending Provider: Dru Haji Primary Care Provider: Lucius Garzon Home Meds and New Rx's Prescriptions: New acetaminophen 500 mg tablet 1,000 mg PO Q8H PRN (Reason: pain) Qty: 60 RF: 3 ibuprofen 600 mg tablet 600 mg PO TID PRNQty: 60 RF: 3 oxycodone 5 mg tablet 5 mg PO Q6H PRN PRNQty: 10 RF: 0 Continued omeprazole 20 mg capsule,delayed release(DR/EC) 20 mg PO DAILY RF: 0 exmfvnnnpm-afsguvnufllsy-vgbg [Fioricet] 1 EACH tablet 2 tab-cap PO DAILY PRNRF: 0 buspirone 30 MG tablet 20 mg PO DAILY RF: 0 topiramate 50 MG tablet 50 mg PO DAILY RF: 0 Fish Oil 1 EACH capsule 1 ea PO TID RF: 0 bupropion HCl [Wellbutrin] 100 MG tablet 100 mg PO DAILY RF: 0 Shingrix Adjuvant Component-PF suspension 0.5 ml IM .COMPLEX Qty: 0.5 RF: 1 zolpidem [Ambien] 10 mg Tablet 10 mg PO HS RF: 0 losartan 25 MG tablet 25 mg PO HS RF: 0 L.acidoph, paracasei,B. lactis 1 EACH capsule 2 ea PO DAILY RF: 0 Catalyst 3 ea PO DAILY RF: 0 Osteo Bi-Flex Triple Strength 1 EACH tablet 1 ea PO DAILY RF: 0 Calm 1 tsp PO DAILY RF: 0 acetaminophen 500 mg tablet 1,000 mg PO Q8H PRN (Reason: pain) Qty: 90 RF: 3 Coreplex 3 ea PO DAILY RF: 0 Discharge Instructions Additional Instructions: PT to start tomorrow. Stand Alone Forms: [facility] Knee Arthroscopy Referrals: Dru Haji MD [ [facility] STAFF PHYSICIAN] - Activity:: Activity as Tolerated Remove Dressings/Wound Care:: 72 hours Shower/Bathe:: 72 hours Diet:: As Tolerated Discharge Orders Discharge Orders: Discharge Order (Routine); Ordered 07/06/19 Ordered By: Dru Haji DS: Diagnosis Discharge Diagnosis (1) Postoperative stiffness of total knee replacement: Status: Acute
[2019-07-06] MEDS: ceFAZolin 2 GM/50 ML BAG IVPB (10:44)
[2019-07-06] MEDS: Bupivacaine 0.5% Pres-Free 30 ML VIAL (10:56)
[2019-07-06 11:40] VITALS: BP 122/78; PULSE 55; RESP 10; TEMP 36.9; O2SAT 100
[2019-07-06 11:45] VITALS: BP 127/84; PULSE 61; RESP 11; TEMP 36.9; O2SAT 99
[2019-07-06 11:50] VITALS: BP 130/86; PULSE 61; RESP 12; TEMP 36.9; O2SAT 99
[2019-07-06 12:05] VITALS: BP 140/73; PULSE 61; RESP 10; TEMP 37; O2SAT 99
[2019-07-06 12:48] VITALS: BP 129/85; PULSE 53; RESP 16; TEMP 36.2; O2SAT 100
--- NOTE | 2019-07-08 05:41 | W.PM.OP ---
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 Nonoperative measures were exhausted but disability and pain persisted. I discussed knee arthroscopy to remove scar tissue adhesions and then performed manipulation. I reviewed the risks of the procedure to include, but not limited to, bleeding, infection, pain, stiffness, damage to nerves or vessels, recurrence, blood clot. Despite these risks, the patient elected to proceed. Findings: A diagnostic arthroscopy was performed and demonstrated significant scarring within the knee. The majority was seen over the lateral aspect of the knee where there is interposed tissue between the lateral, distal femur and the polyethylene. Preoperatively her range of motion was almost 5 degrees of extension to 115 degrees of flexion. Postoperatively I was able to gain full extension and flexion to 130 degrees. Procedure Description: Dorothy was greeted in the preoperative holding area where the correct side was identified and marked. The consent was reviewed with the patient and signed. The history and physical was updated. All questions were answered. Dorothy was taken back to the operating room. The patient was placed into the supine position on the operating room table. A nonsterile tourniquet was placed high onto the leg but not used. All bony prominences were well padded. Prophylactic antibiotics in the form of cefazolin were administered. The left leg was then prepped with Chloraprep and draped in a standard fashion with stockinette and extremity drape. A timeout to confirm correct identity, side and site, procedure, allergies, anesthesia, and medical concerns was performed. The leg was placed into a pneumatic leg [place], SPIDER2. A standard lateral portal was made at the lateral border of the patella tendon in line with the inferior pole of the patella, soft spot. The skin and deep tissue was incised sharply and the blunt trochar was inserted atraumatically. A diagnostic arthroscopy was performed which demonstrated scarring around the implant as to be expected but significant hypertrophy in the lateral aspect of the knee with interposed tissue between the lateral compartment and the polyethylene. There is also some tight adhesion seen in the suprapatellar space. A medial portal was established first. Using this portal use with letter cautery and shaver to remove scar tissue from the anterior aspect of the knee, behind the patellar tendon. I then worked medially around the tibial implant to expose the base of the tibial implant. Once this was complete immediately the same was done laterally. However, the tissue was so thick in the lateral space and interposed I was unable to make much progress with the medial portal. Therefore, I establish a superolateral portal. Working from the top I was able to reestablish the lateral gutter and removed the tissue which was interposed between the femur and the polyethylene. I then circumferentially released the patella. There is no significant synovitis seen around the patella. The scope was inserted into the subpatellar space and adhesions between the undersurface of the quadriceps tendon and the distal femur were released with electrocautery. The knee was thoroughly irrigated with the arthroscopic fluid on high flow and pressure. Inflow was stopped and excess fluid was removed. A single dose of succinylcholine was administered and manipulation was performed. I was able to lay her leg flat on the bed and even hyperextend 1 or 2 degrees at most. Her flexion was at least 130 degrees with no effort. The wounds were closed with 4-0 Nylon. They were dressed with Xeroform, 4x4 gauze, ABD pad, Kerlix and an JULIANO wrap. A cryo-cuff was applied. The patient tolerated the procedure well and was returned to the Same Day Surgery area in a stable condition suffering no known complication.
== END 2019-07-06 13:15 | disposition home or self-care (01) ==
PROVIDERS: PCP Emergency Medicine; Visit Provider Student in an Organized Health Care Education/Training Program
PROC: (CPT 29870; principal; 2019-07-06 10:30)
DX: M24.662 Ankylosis, left knee (principal); Z96.652 Presence of left artificial knee joint
CPT/HCPCS: 29875; 27570; J0131; J0690; J1100; J1885; J2250; J2405; J3010

== ENCOUNTER 2019-10-16 09:02 | Outpatient (CLI) | payer BC, SELFPAY ==
[2019-10-16 09:28] LABS: Absolute Basophil Count 0.03 k/cumm (0.0-0.2); Absolute Eosinophil Count 0.16 k/cumm (0.0-0.7); Absolute Lymphocyte Count 1.19 k/cumm (1.2-3.4); Absolute Monocyte Count 0.54 k/cumm (0.11-0.7); Absolute Neutrophil Count 1.64 k/cumm (1.2-6.7); Basophils % 0.8; Eosinophils % 4.5; HCT 41.4 % (36.0-46.0); HGB 13.9 g/dL (12.0-15.5); Lymphocytes % 33.4; Mean Corp. HGB Concentration 33.6 g/dL (32.0-36.0); Mean Corpuscular Hemoglobin 31.6 pg (27.0-33.0); Mean Corpuscular Volume 94.1 fL (80-95); Mean Platelet Volume 9.6 fL (8.0-11.0); Monocytes % 15.2; Neutrophils % 46.1; Platelet Count 243 x1000/uL (130-400); RBC Distribution Width 14.9 % (11.7-14.6); White Blood Cell Count 3.56 k/cumm (4.4-10.8)
[2019-10-16 10:06] LABS: ALT 44 U/L (14-59); AST 28 U/L (15-37); Albumin 3.5 g/dL (3.4-5.0); Alkaline Phosphatase 71 U/L (46-116); Anion Gap 5.9 mmol/L (3-11); BUN 24 mg/dL (7-18); Bilirubin, Total 0.3 mg/dL (0.2-1.0); CO2 30.1 mmol/L (21.0-32.0); CREATININE 0.76 mg/dL (0.55-1.02); Chloride 105 mmol/L (98-107); Glucose 92 mg/dL (74-106); Potassium 4.5 mmol/L (3.5-5.1); Sodium 141 mmol/L (136-145); Total Protein 6.6 g/dL (6.4-8.2)
== END 2019-10-16 09:22 ==
PROVIDERS: PCP Emergency Medicine; Visit Provider Psychiatry & Neurology Neurology
DX: G43.019 Migraine without aura, intractable, without status migrainosus (principal); R29.898 Other symptoms and signs involving the musculoskeletal system
CPT/HCPCS: 36415; 80053; 80076; 85025

== ENCOUNTER 2020-04-23 00:47 | Outpatient (CLI) | payer BC, SELFPAY ==
--- NOTE | 2020-04-23 08:15 | DI.RAD_ITS ---
EXAM: XR LUMBAR SPINE COMPLETE CLINICAL HISTORY: LS pain, JOIN PAIN, m25.50. TECHNIQUE: 2D digital imaging was performed. COMPARISON: No exams were available for comparison FINDINGS: There is hardware seen at the L4 and L5 level with pedicle screws. The hardware appears intact. Th ere is a moderate levoscoliosis. There is there is narrowing of the L1-2 through L3-4 discs on the r ight side at the L5-S1 level on the left. Facet degenerative changes are seen throughout. No compre ssion fracture is seen. IMPRESSION: Degenerative and postsurgical surgical changes. Scoliosis. DATA REPOSITORY: RADIATION DOSE DELIVERED:
--- NOTE | 2020-04-23 08:15 | DI.RAD_ITS ---
EXAM: XR TOE RT THIRD INDICATION: joint pain, M25.50. COMPARISON: No exams were available for comparison TECHNIQUE: 2D digital imaging was performed. FINDINGS: There has been previous fusion of the proximal interphalangeal joint of the 2nd toe. There are sydney re degenerative changes of the 2nd metatarsophalangeal joint. There the 3rd through 5th MTP joints a re unremarkable. There are degenerative changes of the interphalangeal joints of the remaining toes. IMPRESSION: Degenerative and postsurgical changes. DATA REPOSITORY: RADIATION DOSE DELIVERED:
== END 2020-04-23 01:07 ==
PROVIDERS: PCP Emergency Medicine; Visit Provider Emergency Medicine
DX: M79.674 Pain in right toe(s) (principal); M25.571 Pain in right ankle and joints of right foot; M19.071 Primary osteoarthritis, right ankle and foot; Z98.1 Arthrodesis status
CPT/HCPCS: 72110; 73660

== ENCOUNTER 2020-05-03 02:40 | Outpatient (CLI) | payer BC, SELFPAY ==
[2020-05-03 09:46] LABS: Abs Immature Grans 0.01 k/cumm (0.0-0.09); Absolute Basophil Count 0.03 k/cumm (0.0-0.2); Absolute Eosinophil Count 0.07 k/cumm (0.0-0.7); Absolute Lymphocyte Count 1.17 k/cumm (1.2-3.4); Absolute Monocyte Count 0.41 k/cumm (0.11-0.7); Basophils % 0.9; Eosinophils % 2.1; HCT 41.9 % (36.0-46.0); HGB 14.1 g/dL (12.0-15.5); Immature Grans % 0.3 %; Lymphocytes % 35.6; Mean Corp. HGB Concentration 33.7 g/dL (32.0-36.0); Mean Corpuscular Hemoglobin 31.4 pg (27.0-33.0); Mean Corpuscular Volume 93.3 fL (80-95); Mean Platelet Volume 9.9 fL (8.0-11.0); Monocytes % 12.5; Neutrophils % 48.6; Platelet Count 242 x1000/uL (130-400); RBC 4.49 m/cumm (4.00-5.20); RBC Distribution Width 14.4 % (11.7-14.6); White Blood Cell Count 3.29 k/cumm (4.4-10.8)
[2020-05-03 10:46] LABS: ALT 53 U/L (14-59); AST 27 U/L (15-37); Albumin 3.9 g/dL (3.4-5.0); Alkaline Phosphatase 74 U/L (46-116); Anion Gap 7.3 mmol/L (3-11); BUN 29 mg/dL (7-18); Bilirubin, Total 0.4 mg/dL (0.2-1.0); CO2 28.7 mmol/L (21.0-32.0); CREATININE 0.87 mg/dL (0.55-1.02); Calcium 9.7 mg/dL (8.5-10.1); Chloride 104 mmol/L (98-107); Glucose 93 mg/dL (74-106); Potassium 4.3 mmol/L (3.5-5.1); Sodium 140 mmol/L (136-145)
[2020-05-03 10:53] LABS: Bilirubin, Direct 0.13 mg/dL (0.00-0.20)
== END 2020-05-03 03:00 ==
PROVIDERS: PCP Emergency Medicine; Visit Provider Psychiatry & Neurology Neurology
DX: Z79.899 Other long term (current) drug therapy (principal)
CPT/HCPCS: 36415; 80053; 80076; 85025

== ENCOUNTER 2020-11-02 11:11 | Outpatient (CLI) | payer BC, SELFPAY ==
--- NOTE | 2020-11-02 09:45 | DI.RAD_ITS ---
EXAM: XR KNEE RT 2V AP,LAT CLINICAL HISTORY: 1 year fu. TECHNIQUE: 2D digital imaging was performed. COMPARISON: CR XR knee LT 1V from 03/16/2019 CR XR KNEES MERCHANT ONLY from 05/27/2019 FINDINGS: Position of the components of the right knee prosthesis are satisfactory with no fracture or loosenin g. No radiographic evidence of osteomyelitis. IMPRESSION: DATA REPOSITORY: RADIATION DOSE DELIVERED:
--- NOTE | 2020-11-02 09:45 | DI.RAD_ITS ---
EXAM: XR KNEE LT 2V AP,LAT CLINICAL HISTORY: 1 year fu. TECHNIQUE: 2D digital imaging was performed. COMPARISON: CR XR KNEE RT 2V AP,LAT from 11/02/2020 also x-rays 2019 FINDINGS: There is satisfactory position alignment of the components of the prosthesis. No fracture or looseni ng evident. No radiographic evidence of osteomyelitis. IMPRESSION: DATA REPOSITORY: RADIATION DOSE DELIVERED:
== END 2020-11-02 11:31 ==
PROVIDERS: PCP Emergency Medicine; Referring Provider Emergency Medicine; Visit Provider Physician Assistant Surgical
DX: Z96.653 Presence of artificial knee joint, bilateral (principal)
CPT/HCPCS: 73560

== ENCOUNTER 2021-05-07 02:39 | Outpatient (CLI) | payer BC, SELFPAY ==
[2021-05-07 10:57] LABS: Calculated LDL 77 mg/dL (<100); Cholesterol 191 mg/dL (<200); HDL Cholesterol 108 mg/dL (40-60); Triglyceride 31 mg/dL (<150)
== END 2021-05-07 02:40 | disposition home or self-care (01) ==
LOC: LBO 02:40
PROVIDERS: PCP Emergency Medicine; Visit Provider Psychiatry & Neurology Neurology
DX: Z79.899 Other long term (current) drug therapy (principal); I73.00 Raynaud's syndrome without gangrene
CPT/HCPCS: 36415; 80061

== ENCOUNTER 2022-02-04 02:18 | Outpatient (CLI) | payer BC, SELFPAY ==
[2022-02-04 08:32] LABS: ALT 47 U/L (14-59); AST 28 U/L (15-37); Albumin 3.7 g/dL (3.4-5.0); Alkaline Phosphatase 71 U/L (46-116); Anion Gap 6.2 mmol/L (3-11); BUN 26 mg/dL (7-18); Bilirubin, Total 0.4 mg/dL (0.2-1.0); CO2 30.8 mmol/L (21.0-32.0); CREATININE 0.8 mg/dL (0.55-1.02); Calcium 8.7 mg/dL (8.5-10.1); Calculated LDL 94 mg/dL (<100); Chloride 107 mmol/L (98-107); Cholesterol 207 mg/dL (<200); Glucose 91 mg/dL (74-106); HDL Cholesterol 103 mg/dL (40-60); Potassium 4.1 mmol/L (3.5-5.1); Sodium 144 mmol/L (136-145); Total Protein 7.1 g/dL (6.4-8.2); Triglyceride 54 mg/dL (<150)
[2022-02-05 09:34] LABS: C3 Complement 85 mg/dL (81-157); C4 Complement 18 mg/dL (13-39)
[2022-02-05 10:45] LABS: Hepatitis C Ab w Rflx HCV PCR Negative (Negative)
[2022-02-05 10:58] LABS: HIV-1/2 Ag & Ab Screen Negative (Negative)
[2022-02-06 05:24] LABS: Vitamin D 25 Total 65.5 ng/mL (30-100)
[2022-02-06 13:23] LABS: dsDNA Ab, IgG <12.3 IU/mL (<30.0)
[2022-02-06 14:46] LABS: SS-A Antibody 0.8 Units (<20.0); SS-B (La) Ab, IgG 0.6 Units (<20.0); Sm (Smith) Ab, IgG 1.1 Units (<20.0)
== END 2022-02-04 02:19 | disposition home or self-care (01) ==
LOC: LBO 02:19
PROVIDERS: Internal Medicine Rheumatology; PCP Nurse Practitioner Family; Referring Provider Nurse Practitioner Family; Visit Provider Nurse Practitioner Family
DX: E55.9 Vitamin D deficiency, unspecified (principal); Z13.220 Encounter for screening for lipoid disorders; Z13.1 Encounter for screening for diabetes mellitus; Z11.59 Encounter for screening for other viral diseases; Z11.4 Encounter for screening for human immunodeficiency virus [HIV]; Z51.81 Encounter for therapeutic drug level monitoring; F41.8 Other specified anxiety disorders
CPT/HCPCS: 36415; 80053; 80061; 82306; 86803; 87389; 84443; 86160; 86225; 86235

== ENCOUNTER 2022-02-09 06:26 | Outpatient (REF) | payer BC, SELFPAY ==
[2022-02-09 16:04] LABS: C Diff PCR Negative (Negative)
[2022-02-10 22:29] LABS: Campylobacter PCR Negative (Negative); Salmonella PCR Negative (Negative); Shiga Toxin PCR Negative (Negative); Shigella/Enteroinvasive Ecoli Negative (Negative)
== END 2022-02-09 06:27 | disposition home or self-care (01) ==
LOC: LBN 06:26
PROVIDERS: PCP Nurse Practitioner Family; Visit Provider Nurse Practitioner Family
DX: R19.7 Diarrhea, unspecified (principal)
CPT/HCPCS: 87329; 87493; 87505

== ENCOUNTER 2022-04-17 16:38 | Outpatient (REF) | payer BC, SELFPAY ==
[2022-04-19 10:44] LABS: COVID-19 RT-PCR UVMMC Result Negative (Negative)
== END 2022-04-17 16:39 | disposition home or self-care (01) ==
LOC: LBN 16:38
PROVIDERS: PCP Nurse Practitioner Family; Visit Provider Physician Assistant Medical
DX: J02.9 Acute pharyngitis, unspecified (principal); Z20.822 Contact with and (suspected) exposure to COVID-19
CPT/HCPCS: 87077; U0003; 87070

== ENCOUNTER → 2022-04-23 11:16 | Outpatient (CLI) | payer BC, SELFPAY ==
--- NOTE | 2022-04-23 | DI.RAD_ITS ---
Exam(s) XR ARTHRITIS SERIES EXAM: XR ARTHRITIS SERIES CLINICAL HISTORY: BILAT PAIN BILAT OA--M79.645-M18.12-M18.11-M79.644. TECHNIQUE: 2D digital imaging was performed. Two views of both hands. COMPARISON: No exams were available for comparison FINDINGS: Left hand: Mild narrowing the 1st carpal metacarpal joint and minimal spurring. Carpal region otherw ise unremarkable. Metacarpophalangeal joints show minimal periarticular spurring. Interphalangeal joints: Severe narrowing and prominent osteophytes at the distal interphalangeal join t of the 2nd and 5th fingers. Subchondral cyst formation. Severe narrowing and mild spurring at the proximal interphalangeal joint of the 5th finger. Moderate narrowing without spurring seen at the r emaining interphalangeal joints.. Soft tissues: Unremarkable. Right hand: Moderate narrowing and spurring at the 1st carpal metacarpal joint. The carpal region ot herwise unremarkable. Mild hyperextension at the 1st metacarpophalangeal joint. Remaining metacarpophalangeal joints unrem arkable. Interphalangeal joints: Moderate to severe joint space narrowing of the interphalangeal joints with m ild periarticular spurring throughout. Flexion deformity at the distal interphalangeal joint of the index finger. Soft tissues show no calcifications. IMPRESSION: Findings consistent with osteoarthritis is greatest at the 2nd and 5th distal interphalangeal joints of the right hand. DATA REPOSITORY: RADIATION DOSE DELIVERED:
== END ==
PROVIDERS: PCP Nurse Practitioner Family; Visit Provider Internal Medicine Rheumatology
DX: M18.12 Unilateral primary osteoarthritis of first carpometacarpal joint, left hand (principal); M79.645 Pain in left finger(s); M79.644 Pain in right finger(s)
CPT/HCPCS: 73120

== ENCOUNTER 2023-02-17 04:47 | Outpatient (CLI) | payer BC, SELFPAY ==
[2023-02-17 07:15] LABS: Abs Immature Grans 0.01 10^3/uL (0.0-0.06); Absolute Basophil Count 0.03 10^3/uL (0.0-0.2); Absolute Eosinophil Count 0.09 10^3/uL (0.0-0.7); Absolute Monocyte Count 0.44 10^3/uL (0.1-0.8); Absolute Neutrophil Count 1.59 10^3/uL (1.2-6.7); Basophils % 0.9; Eosinophils % 2.8; HCT 43.3 % (36.0-46.0); HGB 14.5 g/dL (11.2-15.7); Immature Grans % 0.3; Lymphocytes % 33.7; MCH 31.3 pg (27.0-33.0); MCHC 33.5 % (32.0-36.0); MCV 93 fL (80-95); MPV 9.3 fL (8.0-11.0); Monocytes % 13.5; Neutrophils % 48.8; Platelet Count 242 10^3/uL (130-400); RBC 4.64 10^6/uL (3.93-5.22); RDW 14.2 % (11.7-14.6); RDW-SD 49.1 fL; WBC 3.26 10^3/uL (4.4-10.8)
[2023-02-17 08:04] LABS: ALT 48 U/L (14-59); AST 28 U/L (15-37); Albumin 3.7 g/dL (3.4-5.0); Alkaline Phosphatase 68 U/L (46-116); Anion Gap 8.1 mmol/L (3-11); BUN 29 mg/dL (7-18); Bilirubin, Total 0.3 mg/dL (0.2-1.0); CO2 29.9 mmol/L (21.0-32.0); CREATININE 0.9 mg/dL (0.55-1.02); Calculated LDL 82 mg/dL (<100); Chloride 105 mmol/L (98-107); Cholesterol 184 mg/dL (<200); Estimated GFR 71.39 (mL/min/1.73m2); Glucose 101 mg/dL (74-106); HDL Cholesterol 95 mg/dL (40-60); Potassium 4.2 mmol/L (3.5-5.1); Sodium 143 mmol/L (136-145); Total Protein 7.4 g/dL (6.4-8.2); Triglyceride 35 mg/dL (<150); Vitamin B12 757 pg/mL (193-986)
== END 2023-02-17 04:48 | disposition home or self-care (01) ==
LOC: LBO 04:48
PROVIDERS: PCP Nurse Practitioner Family; Referring Provider Nurse Practitioner Family; Visit Provider Nurse Practitioner Family
DX: Z13.1 Encounter for screening for diabetes mellitus (principal); Z51.81 Encounter for therapeutic drug level monitoring; K14.6 Glossodynia; E78.5 Hyperlipidemia, unspecified
CPT/HCPCS: 36415; 80053; 80061; 82607; 85025

== ENCOUNTER 2023-08-04 16:55 | Outpatient (REF) | payer BC, SELFPAY ==
[2023-08-04 20:37] LABS: COVID-19 PCR Negative (Negative); Influenza A PCR Negative (Negative); Influenza B PCR Negative (Negative); RSV PCR Negative (Negative)
[2023-08-04 20:43] LABS: Source Nasopharynx
== END 2023-08-04 16:56 | disposition home or self-care (01) ==
LOC: LBO 16:55
PROVIDERS: PCP Nurse Practitioner Family; Visit Provider Nurse Practitioner
DX: J02.9 Acute pharyngitis, unspecified (principal); R05.8 Other specified cough; R53.83 Other fatigue; Z20.822 Contact with and (suspected) exposure to COVID-19
CPT/HCPCS: 87637

== ENCOUNTER 2024-01-20 05:02 | Outpatient (CLI) | payer MEDICARE, OTHER, SELFPAY ==
[2024-02-11 12:05] LABS: Misc Referral (MAYO) See Comments
== END 2024-01-20 05:03 | disposition home or self-care (01) ==
LOC: LBO 05:02
PROVIDERS: PCP Nurse Practitioner Family; Visit Provider Internal Medicine Rheumatology
DX: R76.8 Other specified abnormal immunological findings in serum (principal)
CPT/HCPCS: 36415; 83516; 86038; 86235; 86256

== ENCOUNTER 2024-02-25 01:16 | Outpatient (CLI) | payer MEDICARE, OTHER, SELFPAY ==
[2024-02-25 11:25] LABS: Abs Immature Grans 0.01 10^3/uL (0.0-0.06); Absolute Basophil Count 0.03 10^3/uL (0.0-0.2); Absolute Eosinophil Count 0.18 10^3/uL (0.0-0.7); Absolute Lymphocyte Count 1.04 10^3/uL (1.2-3.4); Absolute Monocyte Count 0.52 10^3/uL (0.1-0.8); Absolute Neutrophil Count 1.93 10^3/uL (1.2-6.7); Basophils % 0.8 %; Eosinophils % 4.9 %; HCT 43.1 % (36.0-46.0); HGB 14.4 g/dL (11.2-15.7); Immature Grans % 0.3 %; MCH 31.6 pg (27.0-33.0); MCHC 33.4 % (32.0-36.0); MCV 95 fL (80-95); MPV 10.1 fL (8.0-11.0); Platelet Count 248 10^3/uL (130-400); RBC 4.56 10^6/uL (3.93-5.22); RDW-SD 48.8 fL; WBC 3.71 10^3/uL (4.4-10.8)
[2024-02-25 11:55] LABS: ALT 52 U/L (14-59); AST 30 U/L (15-37); Albumin 3.8 g/dL (3.4-5.0); Alkaline Phosphatase 67 U/L (46-116); Anion Gap 5.6 mmol/L (3-11); BUN 30 mg/dL (7-18); Bilirubin, Total 0.3 mg/dL (0.2-1.0); CO2 31.4 mmol/L (21.0-32.0); CREATININE 0.9 mg/dL (0.55-1.02); Calcium 9.1 mg/dL (8.5-10.1); Calculated LDL 89 mg/dL (<100); Chloride 106 mmol/L (98-107); Cholesterol 194 mg/dL (<200); Estimated GFR 70.95 (mL/min/1.73m2); Glucose 84 mg/dL (74-106); HDL Cholesterol 97 mg/dL (40-60); Potassium 4.2 mmol/L (3.5-5.1); Sodium 143 mmol/L (136-145); Total Protein 7.4 g/dL (6.4-8.2); Triglyceride 40 mg/dL (<150)
== END 2024-02-25 01:17 | disposition home or self-care (01) ==
LOC: LBO 01:16
PROVIDERS: PCP Nurse Practitioner Family; Referring Provider Nurse Practitioner Family; Visit Provider Nurse Practitioner Family
DX: Z13.1 Encounter for screening for diabetes mellitus (principal); E78.5 Hyperlipidemia, unspecified; Z51.81 Encounter for therapeutic drug level monitoring
CPT/HCPCS: 36415; 80053; 80061; 85025

== ENCOUNTER → 2024-04-14 00:45 | Outpatient (CLI) | payer MEDICARE, OTHER, SELFPAY ==
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
--- OUTSIDE RECORDS SUMMARY | 2024-04-14 00:47 | XMS_ITS | Summary of Care ---
Author Name Unknown Organization [facility] Address [address] [place] [address]- Care Team Providers Care Sales Engagement Manager Name Role Phone Unassigned, PCP - Unable to obtain Primary Care Physician Unavailable Encounter [facility] [id number] Date(s): 12/30/22 - 12/30/[address] [address]- Encounter Diagnosis Conjunctivitis, right eye(Discharge Diagnosis) - 12/30/22 Attending Physician: Allen Michael PA-C Admitting Physician: SANDY OGDEN Allergies, Adverse Reactions, Alerts No Known Medication Allergies Assessment and Plan Extracted from: Title:[facility] Note Author:Anuja Michael PA-C Date:12/30/22 Conjunctivitis, right eye??( Unspecified conjunctivitis)(H10.9) *Patient offered but declined discharge paperwork on exam;??discharge instructions given verbally below* ?? You may start the antibiotic eyedrops today.?? Avoid any other ltjo-yea-hvfczap??eyedrops??for the next 7 days. Follow-up here or with your primary care provider if your symptoms fail to improve within the next??3 days. ? Ordered: gentamicin ophthalmic, 1 drop(s), Eye (right), 3xDaily, X 7 day(s), # 5 mL, 0 Refill(s), Pharmacy: [facility]/pharmacy #[id number], 1 drop(s) Eye (right) 3xDaily,x7 day(s), 1, 167.64, cm, 12/30/22 8:53:00 EDT, Height cm, 56.699, kg, 12/30/22 8:53:00 EDT, Weight, Actual kg ?? Medications amlodipine 2.5 mg oral tablet 0 Refill(s), 12/16/22 8:21:00 EST, 1 Start Date: 12/16/22 Status: Ordered busPIRone 15 mg oral tablet 0 Refill(s), 12/16/22 8:21:00 EST, 1 Start Date: 12/16/22 Status: Ordered Fioricet 325 mg-50 mg-40 mg oral tab 0 Refill(s), 1 Start Date: 12/16/22 Status: Ordered gentamicin 0.3% ophthalmic solution 1 drop(s), Eye (right), 3xDaily, X 7 day(s), # 5 mL, 0 Refill(s), Pharmacy: [facility]/pharmacy #[id number], 1 drop(s) Eye (right) 3xDaily,x7 day(s), 1, 167.64, cm, 12/30/22 8:53:00 EDT, Height cm, 56.699, kg, 12/30/22 8:53:00 EDT, Weight, Actual kg Start Date: 12/30/22 Stop Date: 01/06/23 Status: Ordered Vital Signs Most recent to oldest [Reference Range]: 1 Temperature Oral [96.4-99.1 DegF] 97.0 D egF (12/30/22 8:53 AM) Pulse Rate [60-110 bpm] 57 bpm *LOW* (12/30/22 8:53 AM) Mean Arterial Pressure, Cuff 96 mmHg (12/30/22 8:53 AM) Blood Pressure [90-120/60-90 mmHg] 124/8 2mmHg *HI* (12/30/22 8:53 AM) Weight Unit of Measure POUNDS (12/30/22 8:53 AM) Weight, Actual kg 56.699 kg (12/30/22 8:53 AM) Weight, Actual lbs 125 lb (12/30/22 8:53 AM) Weight, Actual lbs - manual 125 lb (12/30/22 8:53 AM) Measured Weight Yes (12/30/22 8:53 AM) Height cm 167.64 cm (12/30/22 8:53 AM) EHUM Responses Feet/Inches (12/30/22 8:53 AM) Height Feet with Inches 5 ft (12/30/22 8:53 AM) Height Inches with Feet 6 inch(es) (12/30/22 8:53 AM) Height Inches 66 inch(es) (12/30/22 8:53 AM) Body Surface Area 1.6249 (12/30/22 8:53 AM) Body Mass Index (BMI) 20.2 kg/m2 (12/30/22 8:53 AM) [facility] Body Weight Calculated 59.3 kg (12/30/22 8:53 AM) Note * Allen Michael PA-C: PERFORM Event Display: [facility] Urgent Care Provider Notes Authored Date: [id number] Chief Complaint RT eye crusty, watery, itchy x 2 days Visit Information Primary Care Physician:?Unassigned , PCP - Unable to obtain Referring Physician: History of Present Illness 62-year-old female presents for evaluation of right eye crusting??mucoid discharge itching that started 2 days ago. ??She has had grandchildren recently with conjunctivitis as well. ??Denies any severe eye pain or blurred vision. ??Denies any contact lens use. Review of Systems Constitutional- No fever, No body aches, No chills HEENT- SEE HPI Skin- No rash, masses or lesions Physical Exam Vitals & Measurements T:??97.0?F ??(Oral)?? HR:??57??(Pulse)?? BP:??124/82?? SpO2:??97%?? HT:??167.64??cm?? HT:??66??inch(es)?? WT:??125??lb?? WT:??56.699??kg?? BMI:??20.2?? General: Well nourished, no acute distress. Vital signs noted. Skin: Normal color. No rashes or other lesions noted. HEENT: No trauma noted. Extra-ocular movements normal. ??Right eye conjunctive a erythematous with no??involvement of limbus.?? No corneal abrasions or foreign bodies noted.?? Slight swelling of upper and lower eyelids??of right eye. Lymphatics: No lymphadenopathy noted. No extremity swelling noted. Assessment/Plan Conjunctivitis, right eye??(Unspecified conjunctivitis)(H10.9) *Patient offered but declined discharge paperwork on exam;??discharge instructions given verbally below* ?? You may start the antibiotic eyedrops today.?? Avoid any other snnr-yvn-zcntuav??eyedrops??for the next 7 days. Follow-up here or with your primary care provider if your symptoms fail to improve within the next??3 days. Ordered: gentamicin ophthalmic, 1 drop(s), Eye (right), 3xDaily, X 7 day(s), # 5 mL, 0 Refill(s), Pharmacy: [facility]/pharmacy #[id number], 1 drop(s) Eye (right) 3xDaily,x7 day(s), 1, 167.64, cm, 12/30/22 8:53:00 EDT, Height cm, 56.699, kg, 12/30/22 8:53:00 EDT, Weight, Actual kg ?? Medications amlodipine 2.5 mg oral tablet busPIRone 15 mg oral tablet Fioricet 325 mg-50 mg-40 mg oral tab gentamicin 0.3% ophthalmic solution, 1 drop(s), Eye (right), 3xDaily Allergies No Known Medication Allergies Social History Tobacco Smokeless Tobacco Use: Not obtained due to cognitive impairment (12/30/22) Smoking Tobacco Use: Never a smoker (12/30/22) Lab Results Lab results - current encounter?? Diagnostic Results Radiology Results ED(12/29/22 00:00 - 12/30/22 09:26) ?? Electronically Signed By: Allen Michael PA-C, on 12.30.2022 09:27 AM Electronically Signed By: Patient Care team information Care Team Personnel Name: Unassigned , PCP - Unable to obtain Member Role: PCP Lifetime Name: Allen Michael PA-C Position: [facility] Physician Cloth Tearer Urgent Member Role: Physician Cloth Tearer Address: Address: [address] [place] [address]
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
--- OUTSIDE RECORDS SUMMARY | 2024-04-14 00:47 | XMS_ITS | Summary of Care ---
Author Name Unknown Organization [facility] Address [address] [place] [id number]- Care Team Providers Care Director Ehs Name Role Phone Unassigned, PCP - Unable to obtain Primary Care Physician Unavailable Encounter [facility] [id number] Date(s): 12/16/22 - 12/16/[address] [address]- Encounter Diagnosis Viral respiratory illness(Discharge Diagnosis) - 12/16/22 Suspected COVID-19 virus infection(Discharge Diagnosis) - 12/16/22 Acute pharyngitis(Discharge Diagnosis) - 12/16/22 Other specified symptoms and signs involving the circulatory and respiratory systems(Discharge Diagnosis) - 12/16/22 Attending Physician: Marina Mireles APRN Admitting Physician: SANDY OGDEN Allergies, Adverse Reactions, Alerts No Known Medication Allergies Assessment and Plan Extracted from: Title:[facility] Note Author:Marina Mireles APRN Date:12/16/22 1.??Viral respiratory illnes s??(Other specified respiratory disorders)(J98.8) Ordered: benzonatate, 1-2 cap(s), PO, 3xDaily, PRN as needed for cough, do not crush or chew, X 5 day(s), # 30 cap(s), 0 Refill(s), Pharmacy: [facility]/pharmacy #[id number], 1-2 cap(s) PO 3xDaily,x5 day(s),PRN:as needed for cough,Instr:do not crush or chew, 1, 162.56, cm, 12/16/22 8:2... lidocaine topical, See Instructions, PRN for throat pain, 5 mL orally gargle or swish and swallow up to 3xDaily as needed for sore throat, # 100 mL, 0 Refill(s), [id number], 5 mL orally gargle or swish and swallow up to 3xDaily as needed for sore throa... ?? 2.??Suspected COVID-19 virus infection??(Contact with and (suspected) exposure to COVID-19)(Z20.822) Ordered: benzonatate, 1-2 cap(s), PO, 3xDaily, PRN as needed for cough, do not crush or chew, X 5 day(s), # 30 cap(s), 0 Refill(s), [id number], 1-2 cap(s) PO 3xDaily,x5 day(s),PRN:as needed for cough,Instr:do not crush or chew, 1, 162.56, cm, 12/16/22 8:2... lidocaine topical, See Instructions, PRN for throat pain, 5 mL orally gargle or swish and swallow up to 3xDaily as needed for sore throat, # 100 mL, 0 Refill(s), [id number], 5 mL orally gargle or swish and swallow up to 3xDaily as needed for sore throa... ?? 3.??Acute pharyngitis??(Acute pharyngitis, unspecified)(J02.9) Ordered: benzonatate, 1-2 cap(s), PO, 3xDaily, PRN as needed for cough, do not crush or chew, X 5 day(s), # 30 cap(s), 0 Refill(s), Pharmacy: [facility]/pharmacy #[id number], 1-2 cap(s) PO 3xDaily,x5 day(s),PRN:as needed for cough,Instr:do not crush or chew, 1, 162.56, cm, 12/16/22 8:2... lidocaine topical, See Instructions, PRN for throat pain, 5 mL orally gargle or swish and swallow up to 3xDaily as needed for sore throat, # 100 mL, 0 Refill(s), Pharmacy: [facility]/pharmacy #[id number], 5 mL orally gargle or swish and swallow up to 3xDaily as needed for sore throa... ?? Other specified symptoms and signs involving the circulatory and respiratory systems??(Other specified symptoms and signs involving the circulatory and respiratory systems)(R09.89) ?? Rapid strep test negative.?? Rapid flu test negative.?? Rapid??Covid was negative.?? Discussion about??testing early in onset??of illness??may??give a false negative. ??It is??highly suggested if??covid test is negative early??in onset of illness to??that retest??after a few days??for more accurate??results. ??Discussion of viral illnesses and treatment of symptoms and supportive care.?Advised to go to the emergency room immediately??for any shortness of breath/difficulty in breathing, confusion, anxiety/restlessness.? Discussion of Covid??quarantine timeframe with reference to current CDC guidelines.?? Website information given. https://www.cdc.gov/coronavirus/2019-ncov/your-health/quarantine-isolation.html ?? Benzonatate prescribed for cough.?? Advised not to drive or perform activities that require full level of alertness. ?? Instructions per??patient education and visit summary. ??Patient/family verbalized understanding. ? Medications amlodipine 2.5 mg oral tablet 0 Refill(s), 12/16/22 8:21:00 EST, 1 Start Date: 12/16/22 Status: Ordered benzonatate 100 mg oral capsule 1-2 cap(s), PO, 3xDaily, PRN as needed for cough, do not crush or chew, X 5 day(s), # 30 cap(s), 0 Refill(s), Pharmacy: [facility]/pharmacy #[id number], 1-2 cap(s) PO 3xDaily,x5 day(s),PRN:as needed for cough,Instr:do not crush or chew, 1, 162.56, cm, 12/16/22 8:2... Start Date: 12/16/22 Stop Date: 12/21/22 Status: Ordered busPIRone 15 mg oral tablet 0 Refill(s), 12/16/22 8:21:00 EST, 1 Start Date: 12/16/22 Status: Ordered Fioricet 325 mg-50 mg-40 mg oral tab 0 Refill(s), 1 Start Date: 12/16/22 Status: Ordered Lidocaine Viscous 2% See Instructions, PRN for throat pain, 5 mL orally gargle or swish and swallow up to 3xDaily as needed for sore throat, # 100 mL, 0 Refill(s), Pharmacy: [facility]/pharmacy #[id number], 5 mL orally gargle or swish and swallow up to 3xDaily as needed for sore throa... Start Date: 12/16/22 Stop Date: 12/23/22 Status: Ordered Vital Signs Most recent to oldest [Reference Range]: 1 Temperature Tympanic [97.8-100.5 DegF] 9 6.9 DegF *LOW* (12/16/22 8:21 AM) Pulse Rate [60-110 bpm] 80 bpm (12/16/22 8:21 AM) Mean Arterial Pressure, Cuff 102 mmHg (12/16/22 8:21 AM) Blood Pressure [90-120/60-90 mmHg] 131/8 7mmHg *HI* (12/16/22 8:21 AM) Weight Unit of Measure POUNDS AND OUNCES (12/16/22 8:21 AM) Weight, Actual kg 56.926 kg (12/16/22 8:21 AM) Weight, Actual lbs 125.5 lb (12/16/22 8:21 AM) Weight, Pounds with Ounces 125 lb (12/16/22 8:21 AM) Weight, Ounces with Pounds 8 oz (12/16/22 8:21 AM) Measured Weight Yes (12/16/22 8:21 AM) Height cm 162.56 cm (12/16/22 8:21 AM) EHUM Responses Feet/Inches (12/16/22 8:21 AM) Height Feet with Inches 5 ft (12/16/22 8:21 AM) Height Inches with Feet 4 inch(es) (12/16/22 8:21 AM) Height Inches 64 inch(es) (12/16/22 8:21 AM) Body Surface Area 1.6033 (2/28/23 8:21 AM) Body Mass Index (BMI) 21.5 kg/m2 (12/16/22 8:21 AM) [place] Body Weight Calculated 54.7 kg (12/16/22 8:21 AM) Note * Marina Mireles APRN: PERFORM Event Display: [facility] Care Provider Notes Authored Date: Chief Complaint PT c/o muscle aches, headache, cough, loss of taste/smell, congestion, throat pain and chills x10-12 days. Visit Information Primary Care Physician:?Unassigned , PCP - Unable to obtain Referring Physician: History of Present Illness 62-year-old female here for initial evaluation of URI symptoms??that have been ongoing for the last10 to 12 days with??cough and congestion. ??However, yesterday??she had a worsening sore throat??especially overnight. ??Pain with swallowing.?? She also lost her sense of taste yesterday.?? She has been here visiting her grandchildren??who are the ages of 1 and 2 and are in daycare. ??Both of thembeen ill with sinus??and ear infections and are currently on antibiotics.?? She was last [facility] days ago.?? She tried to take some cough and cold medicine but the line at the pharmacy was too long??for her to wait. Review of Systems Constitutional:??+ fever/chills, +??fatigue HEENT:??+ sore throat, + congestion/runny nose, + new??loss of??taste??or smell Respiratory:??+ cough,??no??shortness of breath/difficulty in breathing Gastrointestinal:??no nausea/vomiting/diarrhea Musculoskeletal:??+ muscle pain Neurological:??+ headache ?? All other ROS negative Physical Exam Vitals & Measurements T:??96.9?F ??(Tympanic)?? HR:??80??(Pulse)?? BP:??131/87?? SpO2:??100%?? HT:??162.56??cm?? HT:??64??inch(es)?? WT:??125.5??lb?? WT:??56.926??kg?? BMI:??21.5?? General: No acute distress, well nourished, well developed, non-toxic HEENT: Normocephalic, normal conjunctiva, TMs clear bilaterally with good light reflex, clear nasaldischarge, mild nasal erythema, moist oral mucosa, mild pharyngeal erythema. Neck supple, non-tender. No cervical lymphadenopathy. Respiratory: Breath sounds CTA bilaterally Cardiovascular: Regular rate and rhythm, S1, S2, without murmurs, rubs, or gallops Abdomen: Non-distended, soft, non-tender, no rebound or guarding, normal bowel sounds x 4, no organomegaly Skin: Warm, dry, intact, normal color Neurologic: Alert and oriented Psychiatric: Cooperative, appropriate mood and affect ?? Lab results - current encounter?? Assessment/Plan 1.??Viral respiratory illness??(Other specified respiratory disorders)(J98.8) Ordered: benzonatate, 1-2 cap(s), PO, 3xDaily, PRN as needed for cough, do not crush or chew, X 5 day(s), # 30 cap(s), 0 Refill(s), Pharmacy: [id number], 1-2 cap(s) PO 3xDaily,x5 day(s),PRN:as needed for cough,Instr:do not crush or chew, 1, 162.56, cm, 12/16/22 8:2... lidocaine topical, See Instructions, PRN for throat pain, 5 mL orally gargle or swish and swallow up to 3xDaily as needed for sore throat, # 100 mL, 0 Refill(s), Pharmacy: [id number], 5 mL orally gargle or swish and swallow up to 3xDaily as needed for sore throa... ?? 2.??Suspected COVID-19 virus infection??(Contact with and (suspected) exposure to COVID-19)(Z20.822) Ordered: benzonatate, 1-2 cap(s), PO, 3xDaily, PRN as needed for cough, do not crush or chew, X 5 day(s), # 30 cap(s), 0 Refill(s), Pharmacy: [facility]/pharmacy #[id number], 1-2 cap(s) PO 3xDaily,x5 day(s),PRN:as needed for cough,Instr:do not crush or chew, 1, 162.56, cm, 12/16/22 8:2... lidocaine topical, See Instructions, PRN for throat pain, 5 mL orally gargle or swish and swallow up to 3xDaily as needed for sore throat, # 100 mL, 0 Refill(s), Pharmacy: [facility]/pharmacy #[id number], 5 mL orally gargle or swish and swallow up to 3xDaily as needed for sore throa... ?? 3.??Acute pharyngitis??(Acute pharyngitis, unspecified)(J02.9) Ordered: benzonatate, 1-2 cap(s), PO, 3xDaily, PRN as needed for cough, do not crush or chew, X 5 day(s), # 30 cap(s), 0 Refill(s), Pharmacy: [facility]/pharmacy #[id number], 1-2 cap(s) PO 3xDaily,x5 day(s),PRN:as needed for cough,Instr:do not crush or chew, 1, 162.56, cm, 12/16/22 8:2... lidocaine topical, See Instructions, PRN for throat pain, 5 mL orally gargle or swish and swallow up to 3xDaily as needed for sore throat, # 100 mL, 0 Refill(s), Pharmacy: [facility] #[id number], 5 mL orally gargle or swish and swallow up to 3xDaily as needed for sore throa... ?? Other specified symptoms and signs involving the circulatory and respiratory systems??(Other specified symptoms and signs involving the circulatory and respiratory systems)(R09.89) ?? Rapid strep test negative.?? Rapid flu test negative.?? Rapid??Covid was negative.?? Discussion about??testing early in onset??of illness??may??give a false negative. ??It is??highly suggested if??covid test is negative early??in onset of illness to??that retest??after a few days??for more accurate??results. ??Discussion of viral illnesses and treatment of symptoms and supportive ca re.?Advised to go to the emergency room immediately??for any shortness of breath/difficulty in breathing, confusion, anxiety/restlessness.? Discussion of Covid??quarantine timeframe with reference to current CDC guidelines.?? Website information given. https://www.cdc.gov/coronavirus/2019-ncov/your-health/quarantine-isolation.html ?? Benzonatate prescribed for cough.?? Advised not to drive or perform activities that require full level of alertness. ?? Instructions per??patient education and visit summary. ??Patient/family verbalized understanding. Medications amlodipine 2.5 mg oral tablet benzonatate 100 mg oral capsule, 1-2 cap(s), PO, 3xDaily, PRN busPIRone 15 mg oral tablet Fioricet 325 mg-50 mg-40 mg oral tab Lidocaine Viscous 2%, See Instructions, PRN Allergies No Known Medication Allergies Social History Tobacco Smokeless Tobacco Use: Never (12/16/22) Smoking Tobacco Use: Never a smoker (12/16/22) Lab Results Lab results - current encounter Covid 19 Ag Result: NEG [place] Influenza A ??Antigen: Negative2 Infuenza B ??Antigen: Negative2 Rapid Strep POC [facility]: Negative Diagnostic Results Radiology Results ED(12/15/22 00:00 - 12/16/22 09:16) ?? Electronically Signed By: Marina Mireles APRN, on 12.16.2022 09:17 AM Electronically Signed By: Patient Care team information Care Team Personnel Name: Unassigned , PCP - Unable to obtain Member Role: PCP Lifetime Name: Marina Mireles APRN Position: [facility] Nurse Practitioner Urgent Member Role: Nurse Practitioner Address: Address: [address] [place] [id number]
--- OUTSIDE RECORDS SUMMARY | 2024-04-14 00:47 | XMS_ITS | Summary of Care ---
Author Name Unknown Organization [facility] Address [address] [place] [id number]- Care Team Providers Care Bailing Machine Operator Name Role Phone Unassigned, PCP - Unable to obtain Primary Care Physician Unavailable Encounter [facility] [id number] Date(s): 07/26/23 - 07/26/[address] [address]- Encounter Diagnosis Patient request for diagnostic testing(Discharge Diagnosis) - 07/26/23 Upper respiratory infection(Discharge Diagnosis) - 07/26/23 Contact with and (suspected) exposure to COVID-19(Discharge Diagnosis) - 07/26/23 Attending Physician: Jocelyn Heredia APRN Admitting Physician: SANDY OGDEN Allergies, Adverse Reactions, Alerts Substance Reaction Severity Status fluconazole Rash Moderate Active Xarelto Anaphylaxis Severe Active Assessment and Plan Extracted from: Title:[facility] Note Author:Andrea Heredia APRN Date:07/26/23 1.??Upper respiratory infect ion??(Acute upper respiratory infection, unspecified)(J06.9) Advised patient of negative COVID and strep findings. ??Discussed with patient that we could??test for flu today however??it would not??change her??treatment plan. ??Patient agreed not to be tested for flu today. ??Given the length of her symptoms and her current presentation today??I did advise her that she is likely on the tail end of viral illness??and should be feeling better in the next couple days on her own. ??We did however offer suggestion of yztz-lhc-[id number] medications especially related to??nasal congestion and body aches??courage patient to rest and increase fluids. Contact with and (suspected) exposure to COVID-19??(Contact with and (suspected) exposure to COVID-19)(Z20.822) Patient request for diagnostic testing??(Encounter for other specified special examinations)(Z01.89) Medications amlodipine 2.5 mg oral tablet 0 Refill(s), 12/16/22 8:21:00 AM EST, 1 Start Date: 12/16/22 Status: Ordered busPIRone 15 mg oral tablet 0 Refill(s), 12/16/22 8:21:00 AM EST, 1 Start Date: 12/16/22 Status: Ordered Fioricet 325 mg-50 mg-40 mg oral tab 0 Refill(s), 1 Start Date: 12/16/22 Status: Ordered lorazePAM 0.5 mg oral tablet mg =, tab(s), PO, q8hr, 0 Refill(s), 1 Start Date: 07/26/23 Status: Ordered Vital Signs Most recent to oldest [Reference Range]: 1 Temperature Oral [96.8-101 DegF] 97.5 De gF (07/26/23 9:10 AM) Pulse Rate [60-90 bpm] 59 bpm *LOW* (07/26/23 9:10 AM) Mean Arterial Pressure, Cuff [65 mmHg] 1 03 mmHg (07/26/23 9:10 AM) Blood Pressure [90-120/60-90 mmHg] 131/8 9mmHg *HI* (07/26/23 9:10 AM) Weight Unit of Measure POUNDS (07/26/23 9:10 AM) Weight, Actual kg 56.699 kg (07/26/23 9:10 AM) Weight, Actual lbs 125 lb (07/26/23 9:10 AM) Weight, Actual lbs - manual 125 lb (07/26/23 9:10 AM) Measured Weight Yes (07/26/23 9:10 AM) Height cm 167.64 cm (07/26/23 9:10 AM) EHUM Responses Feet/Inches (07/26/23 9:10 AM) Height Feet with Inches 5 ft (07/26/23 9:10 AM) Height Inches with Feet 6 inch(es) (07/26/23 9:10 AM) Height Inches 66 inch(es) (07/26/23 9:10 AM) Body Surface Area 1.6249 (07/26/23 9:10 AM) Body Mass Index (BMI) 20.2 kg/m2 (07/26/23 9:10 AM) Hurley Body Weight Calculated 59.3 kg (07/26/23 9:10 AM) Social History Social History Type Response Sex Female Note * Jocelyn Heredia VALET: PERFORM Event Display: [facility] Urgent Care Provider Notes Authored Date: Chief Complaint cough, congestion, body aches, headache, sore throat x8 days Visit Information Primary Care Physician:?Unassigned , PCP - Unable to obtain Referring Physician: History of Present Illness This 62-year-old female presents with??5 to 6 days of symptoms that started with a sore throat??and??body aches however she never had fever. ??She states that her current symptoms are??nasal congestion pressure and body aches. ??She has been using eldi-rzk-fjjutjn products such as DayQuil NyQuil and Tylenol??she denies any nausea vomiting or diarrhea. ??She has no significant history for??asthma or lung disease??heart problems hypertension. ??She does states she is here visiting from [place]??and was worried about possible??flu. ??Denies any shortness of breath or cough at this time. Physical Exam Vitals & Measurements T:??97.5?F ??(Oral)?? HR:??59??(Pulse)?? BP:??131/89?? SpO2:??99%?? HT:??167.64??cm?? HT:??66??inch(es)?? WT:??125??lb?? WT:??56.699??kg?? BMI:??20.2?? General-Well nourished , well developed, No acute distress HEENT- NCAT, TM clear, Clear nasal discharge, Mild Pharyngeal erythema, Mild nasal erythema. No cervical lymphadenopathy Respiratory- No retractions noted, Breath sounds were CTA bilaterally, No rales, rhonchi ??or wheezes heard CVS- Regular rate and rhythm, no murmurs or additional sounds, S1 and S2 heard Skin - Normal color, No rashes or masses Psych- AOx3, normal mood, no anxiety/ depression, judgement -good? Lab results - current encounter Covid 19 Ag Result: NEG Sotero Rapid Strep POC [facility]: Negative Assessment/Plan 1.??Upper respiratory infection??(Acute upper respiratory infection, unspecified)(J06.9) Advised patient of negative COVID and strep findings. ??Discussed with patient that we could??test for flu today however??it would not??change her??treatment plan. ??Patient agreed not to be tested for flu today. ??Given the length of her symptoms and her current presentation today??I did advise her that she is likely on the tail end of viral illness??and should be feeling better in the next coupl e days on her own. ??We did however offer suggestion of fthk-hht-hlubiim medications especially related to??nasal congestion and body aches??courage patient to rest and increase fluids. Contact with and (suspected) exposure to COVID-19??(Contact with and (suspected) exposure to COVID-19)(Z20.822) Patient request for diagnostic testing??(Encounter for other specified special examinations)(Z01.89) Medications amlodipine 2.5 mg oral tablet,?Not taking busPIRone 15 mg oral tablet Fioricet 325 mg-50 mg-40 mg oral tab lorazePAM 0.5 mg oral tablet, PO, q8hr Allergies Xarelto??(Anaphylaxis) fluconazole??(Rash) Social History Tobacco Smokeless Tobacco Use: Never (07/26/23) Smoking Tobacco Use: Never a smoker (07/26/23) Lab Results Lab results - current encounter Covid 19 Ag Result: NEG Sotero Rapid Strep POC [facility]C: Negative Diagnostic Results Radiology Results ED??(07/25/23 00:00 - 07/26/23 09:48) ?? Electronically Signed By: Jocelyn Heredia APRN, on 07.26.2023 09:48 AM Electronically Signed By: Patient Care team information Care Team Personnel Name: Unassigned , PCP - Unable to obtain Member Role: PCP Lifetime Name: Jocelyn Heredia APRN Position: [facility] Nurse Practitioner Urgent Member Role: Nurse Practitioner Address: Address: [address] [place] [address]
--- NOTE | 2024-04-14 07:15 | DI.DEXA_ITS ---
Exam(s) XR DEXA BONE DENSITY W/WO SUKHDEV EXAM: XR DEXA BONE DENSITY W/WO SUKHDEV CLINICAL HISTORY: screening for osteoporosis in postmenopausal woman,z78.0 TECHNIQUE: COMPARISON: DX XR DEXA BONE DENSITY W/WO SUKHDEV from 01/18/2019 FINDINGS: Lateral Spine Image: Unremarkable. No compression deformities identified. There is again seen equal opportunity assistant ior spinal surgery at L4-L5. Left hip: Total T-Score: -0.6. This compares to -0.3 on the prior examination. Total Z-Score: 0.6 T- and Z-scores: Within normal limits. No evidence of osteoporosis. Lumbar Spine: Total T-Score: 2.0. This compares to 1.1 on the prior examination. Total Z-Score: 3.8 T- and Z-scores: Within normal limits. No evidence of osteoporosis. IMPRESSION: No evidence of osteoporosis.
== END ==
PROVIDERS: PCP Nurse Practitioner Family; Visit Provider Nurse Practitioner Family
DX: Z78.0 Asymptomatic menopausal state (principal)
CPT/HCPCS: 77080

== ENCOUNTER 2025-04-11 02:55 | Outpatient (CLI) | payer MEDICARE, OTHER, SELFPAY ==
[2025-04-11 07:58] LABS: ALT 59 U/L (14-59); AST 33 U/L (15-37); Albumin 3.7 g/dL (3.4-5.0); Alkaline Phosphatase 69 U/L (46-116); Anion Gap 5.1 mmol/L (3-11); BUN 26 mg/dL (7-18); Bilirubin, Total 0.4 mg/dL (0.2-1.0); CO2 29.9 mmol/L (21.0-32.0); Calcium 8.9 mg/dL (8.5-10.1); Calculated LDL 75 mg/dL (<100); Chloride 105 mmol/L (98-107); Cholesterol 176 mg/dL (<200); Estimated GFR 62.13 (mL/min/1.73m2); Glucose 95 mg/dL (74-106); HDL Cholesterol 94 mg/dL (>or=50); Potassium 4.2 mmol/L (3.5-5.1); Sodium 140 mmol/L (136-145); Total Protein 7.1 g/dL (6.4-8.2); Triglyceride 35 mg/dL (<150); Vitamin D 25 Total 48 ng/mL (30-100)
== END 2025-04-11 02:56 | disposition home or self-care (01) ==
LOC: LBO 02:55
PROVIDERS: PCP Nurse Practitioner Family; Referring Provider Nurse Practitioner Family; Visit Provider Nurse Practitioner Family
DX: F41.9 Anxiety disorder, unspecified (principal); F32.A Depression, unspecified; E78.5 Hyperlipidemia, unspecified; Z79.899 Other long term (current) drug therapy
CPT/HCPCS: 36415; 80053; 80061; 82306

== ENCOUNTER 2025-06-14 01:20 | Outpatient (CLI) | payer MEDICARE, OTHER, SELFPAY ==
--- NOTE | 2025-06-14 12:30 | DI.US_ITS ---
APPROVED REPORT EXAM: Comprehensive 2D, Doppler, and color-flow Echocardiogram Patient Location: [facility] Former Hand: Svitlana Marquez RDCS (AE) Indications: Dyspnea on exertion, Raynauds disease wo gangrene Other Information Study Quality: Adequate. Technically limited study due to body habitus, inability to position patient exam done supine. Conclusion Normal left ventricular wall thickness and chamber size. Ejection fraction is 60%. Wall motion is normal Normal right ventricular size and function Both atria are normal in size There are no structural valvular abnormalities Mild mitral and tricuspid regurgitation Estimated right ventricular systolic pressure is 22 mmHg Wall motion Left Ventricle The left ventricle is normal size. The left ventricular systolic function is normal. The left ventricular ejection fraction is within the normal range. There is normal left ventricular wall thickness. There is normal LV segmental wall motion. There is no ventricular septal defect visualized. LVEF is 60%. Right Ventricle Right ventricle is not well visualized. Right ventricular systolic function could not be assessed. Atria The left atrium size is grossly normal. The right atrium size is grossly normal. The interatrial septum is intact with no evidence for an atrial septal defect. Aortic Valve The aortic valve is normal in structure. Aortic valve is trileaflet. There is no aortic valvular stenosis. No aortic regurgitation is present. Mitral Valve The mitral valve is normal in structure. No evidence of mitral valve stenosis. Mild mitral regurgitation. Tricuspid Valve The tricuspid valve is normal in structure. There is no tricuspid valve stenosis. Mild tricuspid regurgitation. The RVSP is 22.5_ mmHg. Pulmonic Valve The pulmonary valve is normal in structure. There is no pulmonic valvular stenosis. There is no pulmonic valvular regurgitation. Great Vessels The aortic root is normal in size. The ascending aorta is normal in size. Aortic arch is not well visualized. IVC is normal in size and collapses >50% with inspiration. Pericardium There is no pericardial effusion. 2D Dimensions IVSD d PLAX 0.75 cm F: 0.6-1.0 Ao Root d 2.87 cm F: 2.7 - 3.3 LVPW d PLAX 0.73 cm F: 0.6 - 1.0 Ao Asc Diam d 3.06 cm F: 2.3 - 3.1 LVID d PLAX 4.20 cm F: 3.8 - 5.2 LVDs 2.90 cm F: 2.2 - 3.5 LV EF Teichholz 60.6 % FS 32.05 % LV EDV (Teich) 78.5 mL LV ESV (Teich) 30.9 mL M-Mode TAPSE 2.65 cm (M/F) >1.7 Auto EF LV EDV A4C 115.7 mL LV EDV A2C 89.0 mL LV EDV BP 100.9 mL LV ESV A4C 50.1 mL LV ESV A2C 36.2 mL LV ESV BP 43.0 mL LVEF(%) A4C 56.7 % LVEF(%) A2C 59.3 % LVEF(%) BP 57.4 % LV SV A4C 65.6 ml LV SV A2C 52.8 ml LV SV BP 57.9 ml LV CO A4C 3.5 L/min LV CO A2C 2.9 L/min LV CO BP 3.2 L/min HR A4C 52.63 BPM HR A2C 54.95 BPM LV EDV Index (BP) LV Diastology MV E' medial 0.104 (>0.07 m/s) MV E Vmax 0.75 (0.4-1.3 m/s) MV E/E' MED 7.15 (<14) MV A Vmax 0.65 (0.4-1.3 m/s) MV E' lateral 0.118 (>0.1 m/s) E/A Ratio 1.2 MV E/E' LAT 6.34 (<14) MV E' Average 0.111 m/s MV E/E'(average) 6.72 Aortic Valve AoV Vmax 1.15 m/s LVOT Vmax 0.93 m/s AoV Peak Grad 5.3 mmHg LVOT Peak Grad 3.5 mmHg AoV Area (Vmax) 2.20 cm2 LVOT VTI 0.204 m AoV VTI 0.299 m LVOT Mean Grad 1.7 mmHg AoV Mean Reed. 0.84 m/s LVOT SV 55.70 mL AoV Mean Grad 3.1 mmHg LVOT Diam s 1.85 cm AoV Area (VTI) 1.86 cm2 AV Regurg Peak Gr. 5.29 mmHg Velocity Ratio 0.81 Mitral Valve MV DT 206 (160-240 msec) MV Vmax TIPS 0.78 m/s MV Mean Grad 0.9 (<2mmHg) MV VTI 0.260 m Pulmonary Valve PV Vmax 0.88 (0.5-1.5 m/s) RVOT Vmax 0.65 m/s PV Peak Grad 3.1 mmHg RVOT Peak Gr. 1.7 mmHg PV Mean Reed 0.65 m/s RVOT VTI 0.149 m PV Mean Grad 1.8 mmHg RVOT Mean Gr. 0.8 mmHg Tricuspid Valve RA Pressure 3.00 mmHg TR Vmax 2.21 m/s TV S' 0.15 m/s TR Peak Grad 19.4 mmHg RVSP (TR) 22.5 mmHg
== END 2025-06-14 01:40 ==
LOC: DI 01:20
PROVIDERS: PCP Nurse Practitioner Family; Visit Provider Internal Medicine Rheumatology
DX: R06.09 Other forms of dyspnea (principal); I73.00 Raynaud's syndrome without gangrene
CPT/HCPCS: 93306

== ENCOUNTER 2025-07-05 14:42 | Outpatient (CLI) | payer MEDICARE, OTHER, SELFPAY ==
--- NOTE | 2025-07-05 09:15 | DI.RAD_ITS ---
Exam(s) XR HIP LT COMPLETE AP PELVIS EXAM: XR HIP LT COMPLETE AP PELVIS CLINICAL HISTORY: left hip pain. TECHNIQUE: 2D digital imaging was performed. COMPARISON: No exams were available for comparison FINDINGS: Two views No evidence of pelvic nor hip fracture. Mild medical degenerative changes in the hips Bone density normal. No osseous lesions. IMPRESSION: No acute osseous findings. Only mild degenerative changes in the hips. DATA REPOSITORY: RADIATION DOSE DELIVERED:
== END 2025-07-05 14:43 | disposition home or self-care (01) ==
LOC: DIORS 14:43
PROVIDERS: PCP Nurse Practitioner Family; Visit Provider Student in an Organized Health Care Education/Training Program
DX: M16.12 Unilateral primary osteoarthritis, left hip (principal); M70.62 Trochanteric bursitis, left hip; M25.552 Pain in left hip
CPT/HCPCS: 99203; 73502

== ENCOUNTER 2025-09-24 08:14 | Inpatient (IN) | payer MEDICARE, OTHER, SELFPAY ==
[2025-09-24] VITALS (57 sets, daily range): BP systolic 115–168; BP diastolic 84–103; PULSE 60–77; RESP 8–21; TEMP 35.9–37.6; O2SAT 94–100; BMI 20.1
[2025-09-24 08:59] LABS: Abs Immature Grans 0.02 10^3/uL (0.0-0.06); HCT 41.1 % (36.0-46.0); HGB 14.0 g/dL (11.2-15.7); Immature Grans % 0.3 %; MCH 31.6 pg (27.0-33.0); MCHC 34.1 % (32.0-36.0); MCV 93 fL (80-95); MPV 9.8 fL (8.0-11.0); Platelet Count 235 10^3/uL (130-400); RBC 4.43 10^6/uL (3.93-5.22); RDW 13.6 % (11.7-14.6); RDW-SD 46.3 fL; WBC 6.02 10^3/uL (4.4-10.8)
[2025-09-24 09:05] LABS: Glucose Negative (Negative)
[2025-09-24 09:18] LABS: Magnesium 2.1 mg/dL (1.6-2.6)
[2025-09-24 09:19] LABS: Lipase 41 U/L (<53)
[2025-09-24 09:20] LABS: ALT 64 U/L (10-49); AST 56 U/L (<34); Albumin 4.2 g/dL (3.2-5.0); Alkaline Phosphatase 63 U/L (46-116); Anion Gap 10.3 mmol/L (3-11); BUN 26 mg/dL (9-23); Bilirubin, Total 0.40 mg/dL (0.2-1.2); CO2 27.7 mmol/L (20.0-31.0); Calcium 9.1 mg/dL (8.3-10.6); Chloride 108 mmol/L (98-107); Glucose 150 mg/dL (74-106); Potassium 3.7 mmol/L (3.5-5.1); Sodium 146 mmol/L (136-145); Total Protein 6.9 g/dL (5.7-8.2)
[2025-09-24 09:22] LABS: Troponin I < 3 ng/L (<35)
[2025-09-24] MEDS: Lactated Ringers 1,000 ML 1000 ML IV (09:25)
[2025-09-24] MEDS: HYDROmorphone 2 MG/ML SYR 0.5 MG IVP (09:25)
[2025-09-24] MEDS: ACETAMINOPHEN 1,000 MG/100 ML BAG 400 MG IVPB ×2 (09:29→21:31)
--- NOTE | 2025-09-24 10:30 | DI.CT_ITS ---
Exam(s) CT ABDOMEN PELVIS W EXAM: CT ABDOMEN PELVIS W CLINICAL HISTORY: rlq pain and tenderness. TECHNIQUE: Imaging Protocol: Axial computed tomography images with coronal and sagittal reformatted images were created and reviewed CONTRAST MATERIAL: Intravenous: Omnipaque-350 100cc Oral: None COMPARISON: CT CT ABDOMEN W from 06/29/2018 FINDINGS: VISUALIZED LUNG BASES: No nodules nor pleural effusions evident. ABDOMEN: There is a small amount of ascites. LIVER: There is an unchanged 1 cm cyst in the right hepatic lobe which has not increased in size from 2018. This does not require further imaging workup. There are no new significant liver lesions. There is, however, some mild periportal edema evident on the present study. GALLBLADDER/BILIARY: No obvious gallbladder pathology. CBD is not dilated. PANCREAS: No evidence of pancreatic mass nor dilatation of the pancreatic duct. SPLEEN: Spleen is not enlarged. No obvious intrasplenic lesions. Splenic and portal veins are patent. ADRENALS: There are no significant adrenal masses. KIDNEYS:No cysts evident. No solid renal masses. No calculi nor hydronephrosis.. ABDOMINAL AORTA: Abdominal aorta is not enlarged. LYMPH NODES:There is no retroperitoneal nor paraaortic adenopathy. ABDOMINAL WALL: No evidence of significant anterior abdominal wall nor inguinal hernia. GI: There is no evidence of small-bowel obstruction however, there is at dilated and medially deviated cecum which measures approximately 11 cm diameter. Concerning for cecal volvulus. PELVIS: GI: The appendix cannot be identified.No evidence of sigmoid diverticulitis. LYMPH NODES: There is no intrapelvic nor inguinal adenopathy. REPRODUCTIVE: Uterus size normal. No obvious abnormal adnexal masses. There is some free fluid in the pelvis. URINARY BLADDER: Mildly distended. OSSEOUS: There is posterior fusion hardware at L4-5 level with intrapedicular screws at these 2 levels. Otherwise chronic multilevel disc space narrowing in the lumbar spine evident. IMPRESSION: Distended and medially deviated cecum with some ascites, these findings suspicious for cecal volvulus. No obvious free air at this time. Emergent surgical consultation is recommended. Other findings as above. Preliminary virtual Radiology report was reviewed RADIATION DOSE DELIVERED: 251.43mGy.cm Total DLP DATA REPOSITORY: All CT scans at this facility are submitted to the National Radiology Data Registry (NRDR) Dose Index Registry (DIR) with the [employer] (A[employer]). RADIATION OPTIMIZATION: All CT scans at this facility use at least one of these dose optimization techniques: automated exposure control; mA and/or kV adjustment per patient size (includes targeted exams where dose is matched to clinical indication); or iterative reconstruction.
[2025-09-24] MEDS: HYDROmorphone 2 MG/ML SYR 1 MG IVP ×2 (10:37→12:10)
[2025-09-24] MEDS: Normal Saline Flush 10 ML SYR IVP ×4 (10:42→19:47)
[2025-09-24] MEDS: Ondansetron 4 MG/2 ML VIAL IVP (10:54)
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
[2025-09-24] MEDS: Normal Saline - Diluent 50 ML VIAL IV (11:09)
[2025-09-24] MEDS: Omnipaque 350 MG/ML 100 ML BTL IJ (11:10)
--- NOTE | 2025-09-24 12:04 | DI.VRAD_ITS ---
Addendum created by Juliana Harris MD on 09/24/2025 12:05:06 PM EST: THIS REPORT CONTAINS FINDINGS THAT MAY BE CRITICAL TO PATIENT CARE. The findings were verbally communicated via telephone conference at 11:54 AM EST on 09/24/[address] Jame Franco. The findings were acknowledged and understood. Initial report created on 09/24/2025 12:04:01 PM EST: PROCEDURE INFORMATION: Exam: CT Abdomen And Pelvis With Contrast Exam date and time: 09/24/2025 11:02 AM Age: 64 years old Clinical indication: Abdominal pain; Other: Rlq pain and tenderness TECHNIQUE: Imaging protocol: Computed tomography of the abdomen and pelvis with contrast. Contrast material: OMNIPAQUE 350; Contrast volume: 75 ml; Contrast route: INTRAVENOUS (IV); COMPARISON: No relevant prior studies for comparison. FINDINGS: Lungs: Minimal dependent atelectatic changes in the lower lobes. No pleural effusions. Liver: No acute abnormality. 9 mm cyst in the medial segment of the left lobe (coronal image 14). Gallbladder and biliary ducts: The gallbladder is distended, which is a nonspecific finding. This might be physiologic, i.e. due to fasting. There are no radiopaque gallstones. There is no intrahepatic or extrahepatic biliary ductal dilation. Pancreas: Unremarkable. Spleen: Unremarkable. The spleen is normal in size. Adrenal glands: Unremarkable. Kidneys and ureters: Normal and symmetric renal enhancement. No hydronephrosis or hydroureter. No suspicious renal masses. Stomach and bowel: The cecum is displaced medially and is markedly distended with gas and stool, measuring up to at least 10 cm in diameter, distal to which the large bowel is essentially collapsed/decompressed. There is swirling of the adjacent mesenteric vessels in the right lower quadrant (see series 12, images 35-42 and coronal images 20-30). Findings are most compatible with cecal volvulus. The stomach is not overtly distended, and the small bowel is normal in caliber. Appendix: Not convincingly identified. Intraperitoneal space: Diffuse haziness of the mesenteric fat consistent with edema, with mild ascites. No pneumoperitoneum. Retroperitoneal space: No retroperitoneal collection or mass. Vasculature: Normal caliber abdominal aorta. Minimal atherosclerotic vascular calcifications. Lymph nodes: No pathologically enlarged lymph nodes. Urinary bladder: Unremarkable. Reproductive: The endometrial canal measures up to 5 mm in AP diameter at the fundus, at the upper limits of normal for a postmenopausal patient. Bones/joints: Degenerative changes. Postsurgical changes from discectomy and posterior fusion noted at L4-L5. Mild lumbar levoscoliosis. No suspicious osseous lesions. Soft tissues: Unremarkable. IMPRESSION: 1. Findings most compatible with cecal volvulus. Emergent surgical consultation is advised. 2. Mild ascites. No pneumoperitoneum. 3. Additional incidental/nonemergent findings are discussed in the body of the report. Dictated and Authenticated by: Juliana Harris MD. Orderin Joan Kilgore MD
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
--- NOTE | 2025-09-24 12:22 | ANES.PREOP_ITS ---
General Info Date of Service Date Performed: 09/24/25 Height: 5 ft 6 in Weight: 56.699 kg Body Mass Index (BMI): 20.1 Meds Allergies and Home Medications Allergies Allergy/AdvReac Type Severity Reaction Status Date / Time rivaroxaban Allergy Severe Anaphylaxsi Verified 09/24/25 09:08 s Home Medication ?Medication ?Instructions ?Recorded cjlieitizl-[id number]-[id number] 2 tab-cap PO DAILY P RN 07/19/13 50 mg-325 mg-40 mg tablet (Fioricet) buspirone 15 mg tablet 15 mg PO BID 11/14/21 wheat dextrin 3 gram/4 gram oral 6 g PO DAILY 02/27/23 powder (Benefiber Sugar Free (dextrin)) calcium carbonate 600 mg PO DAILY 04/01/24 cholecalciferol (vitamin D3) 62.5 5,000 unit PO DAILY 04/01/24 mcg (2,500 unit) chewable tablet creatine monohydrate 1 pwd PO .QD 04/01/24 magnesium 200 mg tablet 400 mg PO DAILY 04/01/24 omega 8-iya-jnp-fish oil 120 1 cap PO .QD 04/01/24 mg-180 mg-500 mg capsule (Fish Oil) sildenafil (pulm.hypertension) 20 20 mg PO BID Raynaud s 04/01/24 mg tablet estradiol 0.01% (0.1 mg/gram) See Rx Instructions vagi nal 04/18/25 vaginal cream .COMPLEX polyethylene glycol 3350 17 17 g PO DAILY 09/24/25 gram/dose oral powder (Miralax) Current Visit Medications: Current Medications Generic Name Dose Route Start Last Admin Trade Name Freq PRN Reason Stop Dose Admin Piperacillin Sod/Tazobactam 100 mls @ 200 mls/hr 09/24/25 12:14 Sod 4.5 gm/ Sodium Chloride IVPB 09/24/25 12:43 STAT STA Iohexol 100 ml 09/24/25 11:15 09/24/25 11:10 Omnipaque 350 Mg/Ml 100 Ml Btl IJ 10/24/25 23:59 100 ml DIRECTED SOTO Administration Sodium Chloride 0 ml 09/24/25 08:34 09/24/25 12:11 Normal Saline Flush 10 Ml Syr IVP 20 ml PRN PRN Administration Sodium Chloride 0 ml 09/24/25 20:00 Normal Saline Flush 10 Ml Syr IVP BID SOTO Sodium Chloride 0 ml 09/24/25 08:34 Normal Saline 10 Ml Vial IJ DIRECTED PRN Sodium Chloride 0 ml 09/24/25 11:05 09/24/25 11:10 Normal Saline Flush 10 Ml Syr IVP 10 ml PRN PRN Administration Sodium Chloride 50 ml 09/24/25 11:15 Normal Saline - Diluent 50 Ml Vial IJ DIRECTED SOTO Sodium Chloride 50 ml 09/24/25 11:15 09/24/25 11:09 Normal Saline - Diluent 50 Ml Vial IV 50 ml .FOR DI USE SOTO Administration PFSH Active Problems Active Problems: Problem Status Onset Code Arthritis of left hip Acute M16.12 Family history of diabetes mellitus Acute Z83.3 Epistaxis, recurrent Acute R04.0 Medicare annual wellness visit, initial Acute Z00.00 Hip pain, left Acute M25.552 Medication management Acute Z79.899 Irritable bowel syndrome with diarrhea Acute K58.0 Medicare welcome exam Acute Z00.00 Screening for osteoporosis Acute Z13.820 Preventative health care Acute Z00.00 Seborrheic keratosis Acute L82.1 Rectocele Acute 02/12/23 N81.6 [facility] arthritis Acute 05/22/22 M19.049 Raynaud disease Acute I73.00 Hyperlipidemia, unspecified Chronic E78.5 Insomnia Chronic G47.00 Anxiety and depression Chronic F41.9, F32.A Lumbar spinal stenosis Chronic Microscopic colitis Acute K52.839 Raynaud's disease without gangrene Chronic I73.00 Left sided sciatica Chronic M54.32 Joint pain Acute M25.50 Chronic knee pain after total replacement of right knee joint Acute M25.561, G89.29, Z96.651 Postoperative stiffness of total knee replacement Acute T84.89XA, M25.669, Z96.659 Low back pain Acute M54.5 Migraine Chronic G43.909 Trochanteric bursitis, left hip Acute 12/30/17 M70.62 Medical History Medical History Dyspareunia in female Positive self-administered antigen test for COVID-19 positive home test 07/16/22. 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 Haji History of bunionectomy of both great toes History of total right knee replacement (TKR) (~11/16/18) Dr. Haji Colonoscopy - IV Sedation 2011- normal Achilles tendon tear with surgical repair Tobacco Smoking/Tobacco Use Status: Never Passive smoking exposure: No Second hand exposure: Yes Alcohol Alcohol Intake: current Alcohol intake frequency: a few times a week Alcohol type: wine and other Substance Use Substance use: Never Substance use type: does not use Counseling provided: none Vital Signs and Lab Results Vital Signs Most Recent Vital Signs in EMR: Most Recent Vital Signs Temp Pulse Resp BP Pulse Ox 35.9 C L 70 17 163/101 H 98 09/24/25 08:46 09/24/25 12:12 09/24/25 12:12 09/24/25 12:12 09/24/25 12:12 Lab Results 09/24/25 08:38 09/24/25 08:38 Complete Blood Count: 2 WBC, (4.4-10.8) 6.02 10^3/uL Today, 08:38 RBC, (3.93-5.22) 4.43 10^6/uL Today, 08:38 Hgb, (11.2-15.7) 14.0 g/dL Today, 08:38 Hct, (36.0-46.0) 41.1 % Today, 08:38 Plt Count, (130-400) 235 10^3/uL Today, 08:38 Complete Metabolic Panel: 2 Sodium, (136-145) 146 mmol/L H Today, 08:38 Potassium, (3.5-5.1) 3.7 mmol/L Today, 08:38 Chloride, (98-107) 108 mmol/L H Today, 08:38 Carbon Dioxide, (20.0-31.0) 27.7 mmol/L Today, 08:38 BUN, (9-23) 26 mg/dL H Today, 08:38 Creatinine, (0.55-1.02) 0.86 mg/dL Today, 08:38 Est GFR (CKD-EPI 2020), (mL/min/1.73m2) 65.85 Today, 08:38 Magnesium, (1.6-2.6) 2.1 mg/dL Today, 08:38 Calcium, (8.3-10.6) 9.1 mg/dL Today, 08:38 Albumin, (3.2-5.0) 4.2 g/dL Today, 08:38 Glucose, (74-106) 150 mg/dL H Today, 08:38 Liver Function Panel: 2 ALT, (10-49) 64 U/L H Today, 08:38 AST, (<34) 56 U/L H Today, 08:38 Cardiac Panel: 2 Troponin I, (<35) < 3 ng/L Today Pancreas Panel: 2 Lipase, (<53) 41 U/L Today, 08:38 Anesthesia Assessment and Plan Anesthesia History Personal History: No History of Anesthesia Complications Family History: No Family History of Anesthesia Complications Exercise Tolerance Exercise Tolerance: Metabolic Equivalents>4 Cardiac & Pulmonary Exam Cardiac Exam: Normal S1/S2 Heart Sounds Pulmonary Exam: Clear Bilateral Breath Sounds Implantable Cardiac Device Does patient have a Pacemaker or an ICD?: No Airway Exam Known Difficult Airway: No Mallampati Class: 3 Mouth Opening: Normal (> 3cm) Thyromental Distance: Greater than 3 cm Neck Range of Motion: Full ROM Neck Circumference: Normal Teeth Condition: Normal Dentition ASA Classification ASA Score: ASA 2 Emergency Case?: Yes NPO Status NPO Status: Full Stomach Anesthesia Plan Resuscitation Status: Full Code Anesthesia Technique: General Anesthesia Airway Planned: Endotracheal Tube Monitors Used: Standard Monitors Preoperative Comments:: 64 yo to OR for cecal volvulus. Has received hydromorphone, acetaminophen, and ondansetron in the ED. Sig PMHx: Raynaud's (sildenafil), anxiety/depression, migraine. Never smoker, occ EtOH. ECHO: LVEF 60%. Mild MR/TR. Previous Anes: - Knee scope, Prop, LMA 4, no issues. - TKA x 2, spinal, prop sedation, no issues. - colo, prop, natural airway, no issues.
[2025-09-24] MEDS: Heparin 5,000 UNITS/ML VIAL 5000 UNITS SC ×2 (12:32→19:47)
[2025-09-24] MEDS: PIPERACILLIN/TAZO 4.5 GM in Normal Saline 100 ML IVPB (12:32)
[2025-09-24] MEDS: Lactated Ringers 1,000 ML 30 ML IV (13:38)
[2025-09-24] MEDS: Bupivacaine 0.25% Pres-Free 30 ML VIAL (14:30)
[2025-09-24] MEDS: Bupivacaine LIPOSOME/PF 133 MG/10 ML VIAL IJ (14:30)
[2025-09-24] MEDS: Normal Saline 20 ML VIAL (14:31)
--- NOTE | 2025-09-24 14:50 | BOWEL_PTH ---
PATIENT: Dorothy Jim LOC: [id number]#:[id number] AGE/SX: 64/F ROOM: RE09/24/[address]: Seamus Looney : 1960 BED: A DIS: 09/25/2025 SPEC #: [id number] RECD: 09/25/25 12:36 STATUS: NAZARIO REPrashant #: [id number] KRYSTAL: 09/24/25 14:[address]: Seamus Looney DEPT: Surgical Specimen RECD BY: Kady Etienne ENTERED: 09/25/25 12:37 SP TYPE: Bowel OTHR DR: Jessica Coleman APRN Tissues: 1 - BOWEL RESECTION(OTHER) Procedures: GROSS AND MICRO LEVEL 5 Comments: [id number]
--- NOTE | 2025-09-24 16:00 | ROE_ITS ---
Operative Note Operative Note Refer to Anesthesia Record Procedure Description: Procedures: 1. Laparoscopic bilateral TAP block 2. Laparoscopic partial/segmental colectomy 3. Entorocolostomy 4. Laparoscopic ICG imaging Preoperative Diagnosis: Cecum volvulus Postoperative Diagnosis: Cecum volvulus, R femoral hernia Surgeon: Rodo Looney Assist: Isaias Anesthesia: General Indication: 64 yo woman presented with acute cecal volvulus. Findings: Bilateral TAP block performed under laparoscopic guidance. Twisted ileum, cecum and ascending colon(free-floating cecum) was not gangrenous, but strangled. Lap right hemicolectomy performed up to the hepatic flexure. Hand- sewn, 2-layer anastomosis between terminal ileum and hepatic flexure colon created (side to end). Mesenteric defect closed. ICG imaging confirmed excellent perfusion on BOTH sides of the anastomosis. She has an incidentally encountered R femoral hernia without incarcerated contents. Complications: None Estimated Blood Loss: 20cc Specimens removed: 1. R devin colectomy (terminal ileum, cecum and ascending colon) Grafts or implants: none Drain: None Procedure in detail: Written consent was obtained from the patient who was in agreement with the risks, the benefits and the indications for the procedure. The patient was taken to the operating suite and laid supine on the operating table. IV antibiotics had been administered and 5000units of heparin subcutaneous had been given. Venodynes were in place. General anesthesia was administered which was tolerated very well. Next we tucked the patient's left arm. The abdomen was prepped and draped in sterile fashion. A timeout was performed. When we were all in agreement we began the procedure. In the left upper quadrant, just beneath the costal margin, local anesthetic was injected and a stab incision made and a 5mm Optiview trocar was used to enter the abdomen under direct visualization. We were then able to to insufflate the abdomen. The patient tolerated this well. Four-quadrant diagnostic laparoscopy was performed. Severely distended cecum was seen but appeared viable. There was some free fluid in the right paracolic gutter that had a reactive appearnce to it. There was no obvious adhesion disease anywhere. I performed a bilateral TAP block using an Exparel mixture on both sides of the abdomen under visualization. 2 more 5 mm trocars were placed in the left lower quadrant and in the epigastric region. The patient was placed in Trendelenburg and we had good visualization. The sigmoid colon, descending colon and transverse colons were all evaluated and in normal anatomical location. The ascending colon and cecum were completely free-floating with the first attachments being the hepatic flexure. The cecum was easily identified with a normal appendix and the ileocecal valve junction. This was twisted 360 degrees and had pulled a loop of ileum around the twisted pedicle. Again, nothing was ischemic, simply completely obstructed and thus dilated. I untwisted this easily and the divided the ileocolic vascular pedicle with the ligasure. I divided right mesocolon all the way to the hepatic flexure(right branch of middle colic was easily visible and preserved). She had scant intra-abdominal fat making the anatomy very easy to identify and understand. I upsized the epigastric port to a 12mm and then divided the terminal ileum with an endo-tc. I mobilized the terminal ileum briefly from the RLQ sidewall attachments. A right-sided femoral hernia was noticed. Nothing herniating within it. I ensured the ascending colon was completely mobilized all the way to the hepati c flexure. It was at this location that the caliber of the colon had returned to normal and was not distended. I made a mini-laparotomy incision by extending the 12mm port. A wound protector was used. I delivered both the stapled T.I. and the mobilized right colon out of this incision. ICG was used to confirm good perfusion at the transection site I had decided on. It showed good perfusion. I divided the colon here, essentially at the hepatic flexure anatomically. The specimen was opened on the back table to confirm no tumor or unexpected pathology. There was nothing noticeable. In usual fashion I think sewed side of stapled ileum to the open end of the transverse colon. I did this is in two layers. Hemostasis was excellent. The mucosa was pink before closing the anastomosis. There was no twisting or kinking. The mesenteric defect near the bowel was sewed close, but I could not close the defect at the root. I put the cap on the [place] and resumed laparoscopic. I sutured the mesenteric defect closed at the root, all the way up to the anastomosis with Vicryl. I then did ICG again. The anastomosis perfusion was excellent on BOTH sides of the anastomosis. Hemostasis was excellent. I suctioned out all of the reactive free fluid that had been in the cavity from the start. We carefully inspected the peritoneal cavity for any evidence of ongoing bleed ing or missed enterotomies(none were suspected). The ileocolic anastomosis lay nicely, without tension or twisting and there was no bleeding anywhere. I closed the incision in layers. [place] were used in the skin. The sponge, instrument and sharps count was correct x3 at the end of the procedure. The patient tolerated the procedure well, was extubated and was taken to the PACU in hemodynamically stable condition. Date of Procedure: 09/24/25
--- NOTE | 2025-09-24 16:18 | W.ANESPOSTOP ---
Postoperative Evaluation Date, Time and Location Date Performed: 09/24/25 Time Performed: 16:18 Patient Location: PACU Vital Signs Most Recent Imported Vital Signs: Most Recent Vital Signs Temp Pulse Resp BP Pulse Ox 36.7 C 68 12 138/92 H 99 09/24/25 16:12 09/24/25 16:16 09/24/25 16:16 09/24/25 16:16 09/24/25 16:16 Pain Score Most Recent Pain Score: Most Recent Pain Score Pain Level 5 09/24/25 13:21 Assessment Mental Status: Awake (Alert & Oriented to Patient Baseline) Airway and Respiratory Function: Patent airway with normal (patient baseline) respiratory exam Cardiovascular Function: Hemodynamically Stable Hydration Status: Adequately Hydrated Nausea & Vomiting: No Nausea or Vomiting Pain: Pain is tolerable per patient Peripheral Nerve Block: Patient did not receive a nerve block
--- NOTE | 2025-09-24 17:35 | W.PC.ACHO ---
Registration Status: ADM IN Primary Language: Preferred Language: Amharic ED Information & Data Chief Complaint Abd Prob 09/24/25 17:04 Triage Note Pt complaining of severe 09/24/25 08:21 generalized abd pain since 429 today. N/V, normal BM Medical / Surgical History (Last Reviewed 09/24/25 @ 16:57 by Jame Franco MD) Dyspareunia in female Positive self-administered antigen test for COVID-19 Right calf atrophy DJD (degenerative joint disease), lumbar (Last Reviewed 09/24/25 @ 16:57 by Jame Franco MD) Status post rotator cuff repair History of total left knee replacement (TKR) (03/03/19) History of bunionectomy of both great toes History of total right knee replacement (TKR) (~11/16/18) Colonoscopy - IV Sedation Achilles tendon tear Most Recent Vital Signs Temperature 37.5 C 09/24/25 17:28 Temperature Source Temporal Artery Scan 09/24/25 17:28 Pulse 62 09/24/25 17:28 Pulse Rhythm Regular 09/24/25 16:55 Pulse 64 09/24/25 16:36 Respiratory Rate 18 09/24/25 17:28 Respiratory Effort Normal, Non-Labored 09/24/25 16:55 Respiratory Depth Normal 09/24/25 16:55 Respiratory Pattern Normal 09/24/25 16:55 Blood Pressure 130/87 09/24/25 17:28 Blood Pressure Mean 101 09/24/25 17:28 Pulse Oximetry 98 09/24/25 17:28 Respiratory End-tidal CO2 37 09/24/25 16:36 Oxygen Delivery Method Room Air 09/24/25 17:28 Oxygen Flow Rate 0 09/24/25 17:28 Pain Level 0 09/24/25 17:28 Allergies rivaroxaban Allergy (Severe, Verified 09/24/25 09:08) Anaphylaxsis Pt states that it felt like her throat was closing up and a couple sx.HE Active Medications Generic Name Dose Route Start Last Admin Trade Name Freq PRN Reason Stop Dose Admin Acetaminophen 1,000 mg in 100 mls @ 400 mls/hr 09/24/25 16:15 09/24/25 16:47 Ofirmev IVPB 10/24/25 16:14 Not Given Q6H SOTO Ringer's Solution 1,000 mls @ 30 mls/hr 09/24/25 16:15 09/24/25 16:10 IV 10/24/25 16:14 Infused INFUSION SOTO Infusion Iohexol 100 ml 09/24/25 11:15 09/24/25 11:10 Omnipaque 350 Mg/Ml 100 Ml Btl IJ 10/24/25 23:59 100 ml DIRECTED SOTO Administration Sodium Chloride 0 ml 09/24/25 08:34 09/24/25 12:11 Normal Saline Flush 10 Ml Syr IVP 20 ml PRN PRN Administration Sodium Chloride 0 ml 09/24/25 11:05 09/24/25 11:10 Normal Saline Flush 10 Ml Syr IVP 10 ml PRN PRN Administration Sodium Chloride 50 ml 09/24/25 11:15 09/24/25 11:09 Normal Saline - Diluent 50 Ml Vial IV 50 ml .FOR DI USE SOTO Administration IV IV Catheter Type [] Saline Lock IV Catheter Type [Right Saline Lock Antecubital] IV Catheter Gauge [] 20 IV Catheter Gauge [Right 20 Antecubital] Diet Orders Category Date Time Status Regular/Normal [DIET] Nutrition 09/24/25 Dinner Active Diagnostics 09/24/25 09/24/25 Range/Units 08:48 08:38 WBC 6.02 (4.4-10.8) 10^3/uL RBC 4.43 (3.93-5.22) 10^6/uL Hgb 14.0 (11.2-15.7) g/dL Hct 41.1 (36.0-46.0) % MCV 93 (80-95) fL MCH 31.6 (27.0-33.0) pg MCHC 34.1 (32.0-36.0) % RDW 13.6 (11.7-14.6) % Plt Count 235 (130-400) 10^3/uL MPV 9.8 (8.0-11.0) fL Immature Gran % 0.3 % Neutrophils % 77.6 % Lymphocytes % 12.6 % Monocytes % 8.6 % Eosinophils % 0.2 % Basophils % 0.7 % Nucleated RBC % 0.0 (0.0-0.3) % Absolute Neutrophils 4.67 (1.2-6.7) 10^3/uL Absolute Lymphocytes 0.76 L (1.2-3.4) 10^3/uL Absolute Monocytes 0.52 (0.1-0.8) 10^3/uL Absolute Eosinophils 0.01 (0.0-0.7) 10^3/uL Absolute Basophils 0.04 (0.0-0.2) 10^3/uL Sodium 146 H (136-145) mmol/L Potassium 3.7 (3.5-5.1) mmol/L Chloride 108 H (98-107) mmol/L Carbon Dioxide 27.7 (20.0-31.0) mmol/L Anion Gap 10.3 (3-11) mmol/L BUN 26 H (9-23) mg/dL Creatinine 0.86 (0.55-1.02) mg/dL Est GFR (CKD-EPI 2020) 65.85 (mL/min/1.73m2) Glucose 150 H (74-106) mg/dL Calcium 9.1 (8.3-10.6) mg/dL Magnesium 2.1 (1.6-2.6) mg/dL Total Bilirubin 0.40 (0.2-1.2) mg/dL AST 56 H (<34) U/L ALT 64 H (10-49) U/L Alkaline Phosphatase 63 (46-116) U/L Troponin I < 3 (<35) ng/L Total Protein 6.9 (5.7-8.2) g/dL Albumin 4.2 (3.2-5.0) g/dL Lipase 41 (<53) U/L Urine Color Yellow (Yellow) Urine Clarity Clear (Clear) Urine pH 8.0 (5-8) Ur Specific [place] 1.015 (1.005-1.025) Urine Protein Negative (Neg-Trace) mg/dL Urine Ketones Negative (Negative) mg/dL Urine Blood Negative (Negative) Urine Nitrite Negative (Negative) Urine Bilirubin Negative (Negative) Urine Urobilinogen 0.2 (Up to 0.2) mg/dL Ur Leukocyte Esterase Negative (Negative) Urine Glucose Negative (Negative) mg/dL Intake and Output - 24 Hour Total 09/24/25 08:14 thru 09/24/25 16:38 Intake Total 1710 Balance 1710 Weight 56.699 kg Intake: IV 1710 Other: Emesis Description None Falls Risk Assessment History of Falls No History 09/24/25 16:55 Contributing Factors No Factors 09/24/25 16:55 Ambulatory Aids Independent 09/24/25 16:55 Tubes/Lines W/no contributing factors 09/24/25 16:55 Gait Evaluation No gait disturbance 09/24/25 16:55 Cognition No cognitive impairment 09/24/25 16:55 Fall Total Score 10 09/24/25 16:55 Level of Risk Standard/Low Risk 09/24/25 16:55 Problems (Last Reviewed 09/24/25 @ 16:57 by Jame Franco MD) Cecal volvulus (Acute) Cecal volvulus (Acute) Attestation Statement: By documenting the first initial, last name, and credentials of the reporting nurse below, both parties acknowledge that all relevant information regarding the patient handoff has been communicated, and that all questions have been addressed to ensure continuity and safety of care. Additional Patient Information/Comments: Report Received From: report taken from Anaid Cervantes Rn @ [id number]
[2025-09-24] MEDS: busPIRone 5 MG TAB 15 MG PO (19:47)
[2025-09-24] MEDS: Ketorolac 15 MG/ML VIAL IVP (22:18)
[2025-09-25] MEDS: ACETAMINOPHEN 1,000 MG/100 ML BAG 400 MG IVPB ×2 (03:58→08:41)
[2025-09-25] MEDS: Heparin 5,000 UNITS/ML VIAL 5000 UNITS SC (03:58)
[2025-09-25] MEDS: Normal Saline Flush 10 ML SYR IVP ×2 (03:59→08:46)
[2025-09-25] MEDS: Ketorolac 15 MG/ML VIAL IVP (04:06)
[2025-09-25 07:19] VITALS: BP 108/68; PULSE 72; RESP 16; TEMP 37.1; O2SAT 97
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
[2025-09-25] MEDS: busPIRone 5 MG TAB 15 MG PO (08:44)
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
--- NOTE | 2025-09-25 12:23 | PDOC.CMPRO ---
Date of service: 09/25/25 Time of Service: 12:23 Care Management Progress Note Progress Note Text Progress Note Text: Dorothy presented to the ED yesterday, 09/24/25, with severe abdominal pain. Imaging revealed a cecal volvulus which required emergent intervention. She was taken to the OR in the afternoon and underwent a laparoscopic partial colectomy. The surgery went well, she was able to tolerate a clear liquid diet this morning and was deemed safe for discharge by the surgeron. Discharge Potential Discharge Needs: Surgical F/U Appt Anticipated Barriers to Discharge: None Identified Patient/Family Education Needs: Review discharge instructions, discuss Ask Me Three Transportation: Private vehicle Plan: Dorothy will be discharged home with no new services. She will follow up with her surgeon and plan of care and transport with her spouse. Social Determinants of Health Screening Social Determinants of health last assessed in clinic: 09/24/25 Will the Patient Participate in the Screening?: Declined to provide Do you worry about having a steady place to live?: choose not to answer
== END 2025-09-25 10:50 | disposition home or self-care (01) | DRG 330 ==
LOC: ER 08:34 → SUR 13:28 → MS 16:44
PROVIDERS: Admitting Provider Student in an Organized Health Care Education/Training Program; Emergency Provider Student in an Organized Health Care Education/Training Program; PCP Nurse Practitioner Family; Visit Provider Student in an Organized Health Care Education/Training Program
PROC: 0DTF4ZG Resection of Right Large Intestine, Percutaneous Endoscopic Approach, Hand-Assisted (ICD-10-PCS; CPT 44204; principal; 2025-09-24 13:00)
DX: K56.2 Volvulus (principal); R18.8 Other ascites; K41.90 Unilateral femoral hernia, without obstruction or gangrene, not specified as recurrent; K58.0 Irritable bowel syndrome with diarrhea; I73.00 Raynaud's syndrome without gangrene; F41.8 Other specified anxiety disorders; M48.061 Spinal stenosis, lumbar region without neurogenic claudication; E78.5 Hyperlipidemia, unspecified; G47.00 Insomnia, unspecified; M54.42 Lumbago with sciatica, left side; G43.909 Migraine, unspecified, not intractable, without status migrainosus; M70.62 Trochanteric bursitis, left hip
CPT/HCPCS: 44204; 36415; 80053; 83690; 96361; 96365; 96367; 96375; 96376; 99223; 99238; 99285; 74177; 81003; 83735; 84484; 85025; 88307; J0131; J0665; J0666; J1100; J1171; J1644; J1885; J2405; J2543; J2704; J3475; J3490

== ENCOUNTER → 2025-09-28 10:21 | Outpatient (BNVA) | payer MEDICARE, OTHER, SELFPAY | PROVIDERS: PCP Nurse Practitioner Family; Referring Provider Nurse Practitioner Family; Visit Provider Physical Therapy Assistant | DX: Z51.89 Encounter for other specified aftercare (principal); K56.2 Volvulus | CPT/HCPCS: 99024 ==

== ENCOUNTER → 2025-10-02 08:11 | Outpatient (BNVA) | payer MEDICARE, OTHER, SELFPAY | PROVIDERS: PCP Nurse Practitioner Family; Referring Provider Nurse Practitioner Family; Visit Provider Student in an Organized Health Care Education/Training Program | DX: K56.2 Volvulus (principal) | CPT/HCPCS: 99024 ==